=== PATIENT | male | born 1940 | race Caucasian/White ===

== ENCOUNTER 2017-12-27 11:53 | Inpatient (IN) ==
[2017-12-27 12:25] LABS: ABG Base Excess 5.7 mmol/L (-2-2); ABG PCO2 49 mmHg (38-42); ABG PO2 59 mmHg (61-120)
--- NOTE | 2017-12-27 12:51 | XR ---
EXAM DATE: 12/27/2017 12:47 PM EDT AGE/SEX: 77 years / Male INDICATIONS: Short of breath. CLINICAL DATA: This is the patient's initial encounter. Patient reports that signs and symptoms have been present for 2 days and indicates a pain score of 0/10. MEDICAL/SURGICAL HISTORY: Congestive heart failure. None. COMPARISON: No prior exams available for comparison. FINDINGS: There is mild pulmonary vascular congestion. The some consolidation in the right lung base could be s mall area of pneumonia. No visible pneumothorax. Mediastinum is unremarkable. CONCLUSION: Mild pulmonary vascular congestion. Airspace disease right lung base difficult to rule out a small pn eumonia Electronically signed by: Wily Pritchett MD 12/27/2017 12:49 PM EDT
[2017-12-27 12:55] LABS: Baso # (Auto) 0.1 th/mm3 (0.0-0.2); Baso % (Auto) 0.5 % (0.0-2.0); Eos # (Auto) 0.1 th/mm3 (0.0-0.4); Eos % (Auto) 0.7 % (0.0-4.0); Hematocrit 25.8 % (39.0-51.0); Lymph % (Auto) 45.2 % (9.0-44.0); Mean Corpuscular Hemoglobin 23.9 pg (27.0-34.0); Mean Corpuscular Volume 77.5 fL (80.0-100.0); Mean Platelet Volume 10.4 fL (7.0-11.0); Mono # (Auto) 1.1 th/mm3 (0.0-0.9); Neut % (Auto) 45.6 % (16.0-70.0); Platelet Count 244 th/mm3 (150-450); Red Blood Count 3.33 mil/mm3 (4.50-5.90); Red Cell Distribution Width 17.3 % (11.6-17.2); White Blood Count 13.2 th/mm3 (4.0-11.0)
[2017-12-27 12:57] LABS: Mean Corpuscular HGB Conc 30.8 % (32.0-36.0)
[2017-12-27 13:06] LABS: Activated Partial Thrombo Time 32.5 sec (24.3-30.1); INR 1.5 Ratio; Prothrombin Time 15.1 sec (9.8-11.6)
[2017-12-27 13:13] LABS: Albumin 2.4 g/dL (3.4-5.0); Anion Gap 11 meq/L (5-15); Aspartate Aminotransferase 13 U/L (15-37); Blood Urea Nitrogen 30 mg/dL (7-18); Calcium 8.7 mg/dL (8.5-10.1); Carbon Dioxide 30.2 meq/L (21.0-32.0); Chloride 99 meq/L (98-107); Glomerular Filtration Rate 38 mL/min (>89); Glucose,Random 217 mg/dL (74-106); Potassium 3.4 meq/L (3.5-5.1); Sodium 140 meq/L (136-145)
[2017-12-27 13:14] LABS: Alanine Aminotransferase 12 U/L (12-78)
[2017-12-27 13:18] LABS: Alkaline Phosphatase 76 U/L (45-117); Total Protein 8.7 g/dL (6.4-8.2); Troponin I 0.08 ng/mL (0.02-0.05)
[2017-12-27 13:23] LABS: Creatine Kinase 84 U/L (39-308)
[2017-12-27 13:28] LABS: Eosinophils 1 % (0-4); Lymphocytes 38 % (9-44); Monocytes 6 % (0-8)
[2017-12-27 13:30] LABS: Platelet Estimate Normal (Normal); Platelet Morphology Normal (Normal)
[2017-12-27] MEDS ORDERED: Azithromycin Inj 500 MG in Sodium Chlor 0.9% Inj 250 ML IV.SIG ONE (14:24)
--- NOTE | 2017-12-27 15:58 | ED ---
HPI General Chief Complaint: Respiratory Symptoms Stated Complaint: Medical Time Seen by Provider: 12/27/17 12:03 Source: patient and EMS Mode of arrival: EMS Limitations: physical limitation History of Present Illness HPI Narrative: The patient is a morbidly obese male CHF that was brought in by EMS with significant exacerbation alert and oriented however was combative with EMS did not let them put a oxygen mask normal given a breathing treatment. On arrival explained to the patient that he appears critically ill and he needs to comply and he understood. Has been having increased dyspnea for the past couple of days denies any fever or chills. Tachypneic using accessory muscles with a pulse of 123 on arrival. MD Complaint: cough Onset (ago): day(s) (2) Duration: constant Severity: severe Relieving factors: nothing Exacerbating factors: exertion and speaking Description of mucous: clear Able to tolerate fluids by mouth: Yes Associated symptoms: chills and cough Treatments prior to arrival: none Related Data Home Medications Medication Instructions Recorded Confirmed bumetanide 1 mg PO BID 12/27/17 12/27/17 febuxostat [Uloric] 40 mg PO DAILY 12/27/17 12/27/17 insulin aspart U-100 [Novolog 36 unit SUB-Q TIDAC 12/27/17 12/27/17 Flexpen U-100 Insulin] insulin degludec [Tresiba 76 unit SUB-Q BID 12/27/17 12/27/17 FlexTouch U-100] linaclotide [Linzess] 290 mcg PO DAILY 12/27/17 12/27/17 metolazone 5 mg PO QAM 12/27/17 12/27/17 potassium chloride [Klor-Con 10] 20 meq PO BID 12/27/17 12/27/17 pregabalin [Lyrica] 300 mg PO BID 12/27/17 12/27/17 rivaroxaban [Xarelto] 20 mg PO DAILY 12/27/17 12/27/17 simvastatin 10 mg PO QPM 12/27/17 12/27/17 terazosin 10 mg PO HS 12/27/17 12/27/17 Allergies Allergy/AdvReac Type Severity Reaction Status Date / Time No Known Allergies Allergy Unverified 12/27/17 11:57 Review of Systems ROS: all other systems reviewed are negative PMFSH History History Provided By: Patient Medical History Medical History Afib (Acute) CHF (congestive heart failure) (Acute) COPD (chronic obstructive pulmonary disease) (Acute) HTN (hypertension) (Acute) Type II diabetes mellitus (Acute) Social History Social History Substance History: No History of Abuse Smoking Status: Former smoker How Often Do You Have a Drink Containing Alcohol: Monthly or less Recent Travel in [facility] within the Last 8 Weeks: No Recent Out of Country Travel within the Last 8 Weeks: No Exam Narrative Exam Narrative: GENERAL: Alert and oriented in respiratory distress following commands responding to questions. SKIN: Focused skin assessment warm/dry. HEAD: Atraumatic. Normocephalic. EYES: Pupils equal and round. No scleral icterus. No injection or drainage. ENT: No nasal bleeding or discharge. Mucous membranes pink and moist. NECK: Trachea midline. No JVD. CARDIOVASCULAR: Tachycardia. No murmur appreciated. Bilateral pitting edema lower extremity RESPIRATORY: Use of accessory muscles. Respiratory distress. Hypoxemia. Tachypnea. Crackles throughout. GASTROINTESTINAL: Abdomen soft, non-tender, nondistended. Hepatic and splenic margins not palpable. MUSCULOSKELETAL: No obvious deformities. No clubbing. No cyanosis. NEUROLOGICAL: Awake and alert. No obvious cranial nerve deficits. Motor grossly within normal limits. Normal speech. PSYCHIATRIC: Appropriate mood and affect; insight and judgment normal. Course Hospital Course: He did improve onBiPAP and Lasix. He appears to have an pneumonia on top of his CHF exacerbation for which she received Rocephin and Zithromax. Patient was admitted for further evaluation and treatment. He did improve with DuoNeb' s as well. Leukocytosis of 13.2 with a left shift noted. Elevated BNP as well. Market hypoxemia with an O2 saturation of 85% on ABGs and a PO2 of 59. Initial Documented Vital Signs Temperature 98.0 F 12/27/17 11:58 Pulse Rate 123 H 12/27/17 11:58 Respiratory Rate 33 H 12/27/17 11:58 Blood Pressure 112/61 12/27/17 11:58 Pulse Oximetry 96 12/27/17 11:58 Last Documented Vital Signs Temperature 98.0 F 09/19/18 11:58 Pulse Rate 85 12/27/17 18:41 Respiratory Rate 25 H 12/27/17 18:41 Blood Pressure 112/61 12/27/17 11:58 Pulse Oximetry 98 12/27/17 18:41 Critical Care Time Critical Care Time: Yes Total Critical Care Time: 45 Attestation: Aggregate critical care time was 45 minutes. Time to perform other separately billable procedures was not included in the critical care time. My time did not include minutes spent treating any other patients simultaneously or on activities that did not directly contribute to the patient's treatment. The services I provided to this patient were to treat and/or prevent clinically significant deterioration that could result in: Cardiopulmonary collapse and/or I provided critical care services requiring my management, as noted below: Chart data review, documentation time, medication orders and management, vital sign assessments/reviewing monitor data, ordering and reviewing lab tests, ordering and interpreting/reviewing x-rays and diagnostic studies, care of the patient and discussion of the patient with the admitting physicians. Medical Decision Making MDM Narrative Medical decision making narrative: Patient with pneumonia and CHF exacerbation. Creatinine also elevated at 1.73 above baseline hyperglycemia noted. He does have a troponin of 0.08 but he denied any chest pain. Hypoxemia noted. He improved with breathing treatment and BiPAP and was admitted for further evaluation. Toxic no signs of acute ischemia. Medical Screen Exam Complete: Yes Emergency Medical Condition: Yes Medical Records Medical records reviewed: Yes I reviewed the patient's medical records. Lab Data Lab results reviewed: Yes I reviewed the patient's lab results. Result diagrams: 12/27/17 12:30 12/27/17 12:30 Lab Results 12/27/17 12/27/17 12/27/17 Range/Units 12:14 12:30 12:30 WBC 13.2 H (4.0-11.0) th/mm3 RBC 3.33 L (4.50-5.90) mil/mm3 Hgb 8.0 L (13.0-17.0) gm/dL Hct 25.8 L (39.0-51.0) % MCV 77.5 L (80.0-100.0) fL MCH 23.9 L (27.0-34.0) pg MCHC 30.8 L (32.0-36.0) % RDW 17.3 H (11.6-17.2) % Plt Count 244 (150-450) th/mm3 MPV 10.4 (7.0-11.0) fL Prelim Diff (Auto) Slide review pending Neut % (Auto) 45.6 (16.0-70.0) % Lymph % (Auto) 45.2 H (9.0-44.0) % [place] % (Auto) 8.0 (0.0-8.0) % Eos % (Auto) 0.7 (0.0-4.0) % Baso % (Auto) 0.5 (0.0-2.0) % Neut # (Auto) 6.0 (1.8-7.7) th/mm3 Lymph # (Auto) 6.0 H (1.0-4.8) th/mm3 [place] # (Auto) 1.1 H (0.0-0.9) th/mm3 Eos # (Auto) 0.1 (0.0-0.4) th/mm3 Baso # (Auto) 0.1 (0.0-0.2) th/mm3 WBC Differential Manual diff final Seg Neuts % (Manual) 55 (16-70) % Lymphocytes % (Manual) 38 (9-44) % Monocytes % (Manual) 6 (0-8) % Eosinophils % (Manual) 1 (0-4) % Abs Neuts (Manual) 7.3 (1.8-7.7) th/mm3 Differential Comment . Platelet Estimate Normal (Normal) Platelet Morphology Normal (Normal) PT 15.1 H (9.8-11.6) sec INR 1.5 Ratio APTT 32.5 H (24.3-30.1) sec Puncture Site Right radial Patient Temperature 98.6 O2 Saturation 85 L* (90-100) % ABG pH 7.41 (7.380-7.420) ABG pCO2 49 H (38-42) mmHg ABG pO2 59 L* (61-120) mmHg ABG HCO3 30 H (22-26) mmol/L ABG O2 Content 9.4 L (12.0-20.0) Vol % ABG Base Excess 5.7 H (-2-2) mmol/L ABG Methemoglobin 0.7 (0-2) % Eitan Test + Hemoglobin 7.8 L* (12.0-16.0) G/DL Carboxyhemoglobin 2.2 (0-4) % O2 Delivery Device Bipap Vent Setting [id number] Inspired O2 50 % Critical Value Yes Sodium (136-145) meq/L Potassium (3.5-5.1) meq/L Chloride (98-107) meq/L Carbon Dioxide (21.0-32.0) meq/L Anion Gap (5-15) meq/L BUN (7-18) mg/dL Creatinine (0.60-1.30) mg/dL Estimated GFR (>89) mL/min Random Glucose (74-106) mg/dL Lactic Acid (0.4-2.0) mmol/L Calcium (8.5-10.1) mg/dL Total Bilirubin (0.2-1.0) mg/dL AST (15-37) U/L ALT (12-78) U/L Alkaline Phosphatase (45-117) U/L Total Creatine Kinase (39-308) U/L Troponin I (0.02-0.05) ng/mL B-Natriuretic Peptide (0-100) pg/mL Total Protein (6.4-8.2) g/dL Albumin (3.4-5.0) g/dL Blood Type Blood Type Recheck Antibody Screen 12/27/17 12/27/17 12/27/17 Range/Units 12:30 12:30 14:45 WBC (4.0-11.0) th/mm3 RBC (4.50-5.90) mil/mm3 Hgb (13.0-17.0) gm/dL Hct (39.0-51.0) % MCV (80.0-100.0) fL MCH (27.0-34.0) pg MCHC (32.0-36.0) % RDW (11.6-17.2) % Plt Count (150-450) th/mm3 MPV (7.0-11.0) fL Prelim Diff (Auto) Neut % (Auto) (16.0-70.0) % Lymph % (Auto) (9.0-44.0) % [place] % (Auto) (0.0-8.0) % Eos % (Auto) (0.0-4.0) % Baso % (Auto) (0.0-2.0) % Neut # (Auto) (1.8-7.7) th/mm3 Lymph # (Auto) (1.0-4.8) th/mm3 [place] # (Auto) (0.0-0.9) th/mm3 Eos # (Auto) (0.0-0.4) th/mm3 Baso # (Auto) (0.0-0.2) th/mm3 WBC Differential Seg Neuts % (Manual) (16-70) % Lymphocytes % (Manual) (9-44) % Monocytes % (Manual) (0-8) % Eosinophils % (Manual) (0-4) % Abs Neuts (Manual) (1.8-7.7) th/mm3 Differential Comment Platelet Estimate (Normal) Platelet Morphology (Normal) PT (9.8-11.6) sec INR Ratio APTT (24.3-30.1) sec Puncture Site Patient Temperature O2 Saturation (90-100) % ABG pH (7.380-7.420) ABG pCO2 (38-42) mmHg ABG pO2 (61-120) mmHg ABG HCO3 (22-26) mmol/L ABG O2 Content (12.0-20.0) Vol % ABG Base Excess (-2-2) mmol/L ABG Methemoglobin (0-2) % Eitan Test Hemoglobin (12.0-16.0) G/DL Carboxyhemoglobin (0-4) % O2 Delivery Device Vent Setting Inspired O2 % Critical Value Sodium 140 (136-145) meq/L Potassium 3.4 L (3.5-5.1) meq/L Chloride 99 (98-107) meq/L Carbon Dioxide 30.2 (21.0-32.0) meq/L Anion Gap 11 (5-15) meq/L BUN 30 H (7-18) mg/dL Creatinine 1.73 H (0.60-1.30) mg/dL Estimated GFR 38 L (>89) mL/min Random Glucose 217 H (74-106) mg/dL Lactic Acid 1.3 (0.4-2.0) mmol/L Calcium 8.7 (8.5-10.1) mg/dL Total Bilirubin 0.4 (0.2-1.0) mg/dL AST 13 L (15-37) U/L ALT 12 (12-78) U/L Alkaline Phosphatase 76 (45-117) U/L Total Creatine Kinase 84 (39-308) U/L Troponin I 0.08 H (0.02-0.05) ng/mL B-Natriuretic Peptide 341 H (0-100) pg/mL Total Protein 8.7 H (6.4-8.2) g/dL Albumin 2.4 L (3.4-5.0) g/dL Blood Type Blood Type Recheck Antibody Screen 12/27/17 Range/Units 14:45 WBC (4.0-11.0) th/mm3 RBC (4.50-5.90) mil/mm3 Hgb (13.0-17.0) gm/dL Hct (39.0-51.0) % MCV (80.0-100.0) fL MCH (27.0-34.0) pg MCHC (32.0-36.0) % RDW (11.6-17.2) % Plt Count (150-450) th/mm3 MPV (7.0-11.0) fL Prelim Diff (Auto) Neut % (Auto) (16.0-70.0) % Lymph % (Auto) (9.0-44.0) % [place] % (Auto) (0.0-8.0) % Eos % (Auto) (0.0-4.0) % Baso % (Auto) (0.0-2.0) % Neut # (Auto) (1.8-7.7) th/mm3 Lymph # (Auto) (1.0-4.8) th/mm3 [place] # (Auto) (0.0-0.9) th/mm3 Eos # (Auto) (0.0-0.4) th/mm3 Baso # (Auto) (0.0-0.2) th/mm3 WBC Differential Seg Neuts % (Manual) (16-70) % Lymphocytes % (Manual) (9-44) % Monocytes % (Manual) (0-8) % Eosinophils % (Manual) (0-4) % Abs Neuts (Manual) (1.8-7.7) th/mm3 Differential Comment Platelet Estimate (Normal) Platelet Morphology (Normal) PT (9.8-11.6) sec INR Ratio APTT (24.3-30.1) sec Puncture Site Patient Temperature O2 Saturation (90-100) % ABG pH (7.380-7.420) ABG pCO2 (38-42) mmHg ABG pO2 (61-120) mmHg ABG HCO3 (22-26) mmol/L ABG O2 Content (12.0-20.0) Vol % ABG Base Excess (-2-2) mmol/L ABG Methemoglobin (0-2) % Eitan Test Hemoglobin (12.0-16.0) G/DL Carboxyhemoglobin (0-4) % O2 Delivery Device Vent Setting Inspired O2 % Critical Value Sodium (136-145) meq/L Potassium (3.5-5.1) meq/L Chloride (98-107) meq/L Carbon Dioxide (21.0-32.0) meq/L Anion Gap (5-15) meq/L BUN (7-18) mg/dL Creatinine (0.60-1.30) mg/dL Estimated GFR (>89) mL/min Random Glucose (74-106) mg/dL Lactic Acid (0.4-2.0) mmol/L Calcium (8.5-10.1) mg/dL Total Bilirubin (0.2-1.0) mg/dL AST (15-37) U/L ALT (12-78) U/L Alkaline Phosphatase (45-117) U/L Total Creatine Kinase (39-308) U/L Troponin I (0.02-0.05) ng/mL B-Natriuretic Peptide (0-100) pg/mL Total Protein (6.4-8.2) g/dL Albumin (3.4-5.0) g/dL Blood Type O Positive Blood Type Recheck Required Antibody Screen Negative Imaging Data Radiologist's impression: Chest X-Ray 12/27/17 12:03 CONCLUSION: Mild pulmonary vascular congestion. Airspace disease right lung base difficult to rule out a small pneumonia ECG Data Prior ECG tracings: available for review Interpretation: Sinus tachycardia 131 bpm left bundle branch block no signs of acute ischemia. Discharge Plan Discharge Disposition Patient Disposition: 30 Still Patient Discharge Condition Condition: Serious Discharge Details Diagnosis: Acute exacerbation of CHF (congestive heart failure), Pneumonia Physicians Team ED Provider: Tejas Alvarez Primary Care Provider: Christopher Yoder III Attending Provider: Earlene Morrow Other Providers: Tung Hare Discharge Interventions Interventions: ED Discharge Assessment Last Done: 12/27/17 18:52 Vital Signs Last Done: 12/27/17 12:57 Status ED Status: Left Department Discharge Information Discharge Date/Time: 12/27/17 18:53
[2017-12-27] MEDS ORDERED: Acetaminophen 325 MG Tablet PO PRN (16:03)
[2017-12-27] MEDS ORDERED: Bisacodyl 10 MG Supp RECTAL PRN (16:03)
[2017-12-27] MEDS ORDERED: Enoxaparin Inj 30 MG/0.3 ML Syringe SQ SCH (17:00)
--- NOTE | 2017-12-27 20:48 | P.HP ---
History of Present Illness Service: Hospitalist Primary Care Physician: Christopher Yoder III, MD Chief Complaint: Shortness of breath History of Present Illness: Mr. Rader is a pleasant 77 year old male with a history of CHF, COPD, HTN, DM who presents to the ED on 12/27/2017 due to shortness of breath. His dyspnea started 2-3 weeks ago. However, today he was severely dyspneic which prompted him to seek medical attention. He denies any chest pain, cough, fever, chills. No changes in bowel or bladder habits. On arrival, patient was started on BiPAP which provided much relief of his symptoms. He was also given 60mg IV lasix. PMH: CHF, COPD, possible Afib, HTN PSH: No major surgeries in the past Social history: Denies using tobacco, alcohol or illicit drugs Family history: No family history of heart disease, cancer - Diagnosis (1) Acute exacerbation of CHF (congestive heart failure) (2) Pneumonia Inpatient Certification: I certify that the inpatient services were ordered in accordance with Medicare regulations governing the order. This includes certification that hospital inpatient services are reasonable and necessary and in the case of services not specified as inpatient-only under 42 CFR 419.22(n), that they are appropriately provided as inpatient services in accordance to with the 2-midnight benchmark under 43 CFR 412.3(e) Estimated Total Length of Stay (Days): 3 Plans for Post Hospital Care: Home Review of Systems All other systems reviewed negative except as stated in HPI [facility] - History History Provided By: Patient - Medical History Medical History: Medical History (Last Reviewed 12/27/17 @ 19:15 by Tejas Alvarez DO) Afib CHF (congestive heart failure) COPD (chronic obstructive pulmonary disease) HTN (hypertension) Type II diabetes mellitus - Tobacco History Smoking Status: Former smoker - Alcohol History How Often Do You Have a Drink Containing Alcohol: Monthly or less - Substance Use History Substance History: No History of Abuse - Travel History Recent Travel in the [place] Within the Last 8 Weeks: No Recent Travel Out of the Country Within the Last 8 Weeks: No - Immunization History Tetanus Immunization: Unsure Hx Influenza Vaccine This Season: No Medications and Allergies Active Medications: Active Medications Acetaminophen (Tylenol) 650 mg PO Q4H PRN PRN Reason: Headache, fever, pain 1-4 Al Hydroxide/Mg Hydroxide (Milk Of Magnesia Liq) 30 ml PO Q12H PRN PRN Reason: Mild Constipation Bisacodyl (Dulcolax Supp) 10 mg RECTAL DAILY PRN PRN Reason: SEVERE CONSITIPATION Enoxaparin Sodium (Lovenox Inj) 30 mg SQ Q24H [facility] Last Admin: 12/27/17 17:44 Dose: 30 mg Furosemide (Lasix Inj) 40 mg IV.PUSH BID@0900,1800 [facility] Last Admin: 12/27/17 19:03 Dose: 40 mg Lactulose (Lactulose Liq) 30 ml PO DAILY PRN PRN Reason: SEVERE CONSITIPATION Ondansetron HCl (Zofran Inj) 4 mg IV.PUSH Q6H PRN PRN Reason: NAUSEA OR VOMITING Sennosides (Senokot) 17.2 mg PO Q12H PRN PRN Reason: Moderate Constipation Allergies Allergy/AdvReac Type Severity Reaction Status Date / Time No Known Allergies Allergy Unverified 12/27/17 11:57 Home Medications Medication Instructions Recorded Confirmed Type bumetanide 1 mg PO BID 12/27/17 12/27/17 History febuxostat [Uloric] 40 mg PO DAILY 12/27/17 12/27/17 History insulin aspart U-100 [Novolog 36 unit SUB-Q TIDAC 12/27/17 12/27/17 History Flexpen U-100 Insulin] insulin degludec [Tresiba 76 unit SUB-Q BID 12/27/17 12/27/17 History FlexTouch U-100] linaclotide [Linzess] 290 mcg PO DAILY 12/27/17 12/27/17 History metolazone 5 mg PO QAM 12/27/17 12/27/17 History potassium chloride [Klor-Con 10] 20 meq PO BID 12/27/17 12/27/17 History pregabalin [Lyrica] 300 mg PO BID 12/27/17 12/27/17 History rivaroxaban [Xarelto] 20 mg PO DAILY 12/27/17 12/27/17 History simvastatin 10 mg PO QPM 12/27/17 12/27/17 History terazosin 10 mg PO HS 12/27/17 12/27/17 History Exam Vital signs: Vital Signs 12/27/17 11:58 12/27/17 12:00 12/27/17 12:08 Temperature 98.0 F Pulse Rate 123 H Respiratory Rate 33 H Blood Pressure 112/61 Pulse Oximetry 96 99 97 12/27/17 12:09 12/27/17 12:29 12/27/17 12:57 Temperature Pulse Rate 106 H 111 H 103 H Respiratory Rate 28 H 26 H Blood Pressure Pulse Oximetry 97 96 12/27/17 18:34 12/27/17 18:41 12/27/17 19:00 Temperature 97.2 F L Pulse Rate 83 77 Respiratory Rate 25 H 24 Blood Pressure 101/56 L Pulse Oximetry 98 98 96 Intake & Output 12/27/17 12/27/17 12/28/17 06:59 18:59 06:59 Intake Total 450 / 450 Balance 450 / 450 Weight 158.757 kg Intake: IV 450 / 450 Azithromycin Inj 500 MG In NS 250 / 250 Inj 250 ML @ 250 mls/hr IV.SIG ONCE ONE Rx#:[id number] Rocephin Inj 1,000 MG In NS Inj 200 / 200 100 ML @ 200 mls/hr IV.SIG ONCE ONE Rx#:[id number] Narrative: GENERAL: This is a well-nourished, well-developed patient, in no apparent distress. Comfortable on BiPAP mask. Morbidly obese. SKIN: No rashes, ecchymoses or lesions. Warm and dry. HEAD: Atraumatic. Normocephalic. No temporal or scalp tenderness. EYES: Pupils equal round and reactive. No injection or drainage. ENT: Nose without bleeding, purulent drainage or septal hematoma. Airway patent. NECK: Trachea midline. No lymphadenopathy. Supple, nontender, no meningeal signs. CARDIOVASCULAR: Regular rate and rhythm without murmurs, gallops, or rubs. No JVD. RESPIRATORY: Clear to auscultation. Breath sounds equal bilaterally. No wheezes , rales, or rhonchi. GASTROINTESTINAL: Abdomen soft, non-tender, nondistended. No guarding. MUSCULOSKELETAL: Extremities without clubbing. Extensive stasis dermatitis, lymphedema in both legs. NEUROLOGICAL: Awake and alert. Cranial nerves II through XII intact. No focal neurological deficits. Normal speech. Results - Labs CBC & Chem 7: 12/27/17 12:30 12/27/17 12:30 Labs: Laboratory Results - last 24 hr 12/27/17 12/27/17 12/27/17 12:14 12:30 12:30 WBC 13.2 H RBC 3.33 L Hgb 8.0 L Hct 25.8 L MCV 77.5 L MCH 23.9 L MCHC 30.8 L RDW 17.3 H Plt Count 244 MPV 10.4 Prelim Diff (Auto) Slide review pending Neut % (Auto) 45.6 Lymph % (Auto) 45.2 H Bee % (Auto) 8.0 Eos % (Auto) 0.7 Baso % (Auto) 0.5 Neut # (Auto) 6.0 Lymph # (Auto) 6.0 H Bee # (Auto) 1.1 H Eos # (Auto) 0.1 Baso # (Auto) 0.1 WBC Differential Manual diff final Seg Neuts % (Manual) 55 Lymphocytes % (Manual) 38 Monocytes % (Manual) 6 Eosinophils % (Manual) 1 Abs Neuts (Manual) 7.3 Differential Comment . Platelet Estimate Normal Platelet Morphology Normal PT 15.1 H INR 1.5 APTT 32.5 H Puncture Site Right radial Patient Temperature 98.6 O2 Saturation 85 L* ABG pH 7.41 ABG pCO2 49 H ABG pO2 59 L* ABG HCO3 30 H ABG O2 Content 9.4 L ABG Base Excess 5.7 H ABG Methemoglobin 0.7 Eitan Test + Hemoglobin 7.8 L* Carboxyhemoglobin 2.2 O2 Delivery Device Bipap Vent Setting [id number] Inspired O2 50 Critical Value Yes Sodium Potassium Chloride Carbon Dioxide Anion Gap BUN Creatinine Estimated GFR POC Glucose Random Glucose Lactic Acid Calcium Total Bilirubin AST ALT Alkaline Phosphatase Total Creatine Kinase Troponin I B-Natriuretic Peptide Total Protein Albumin Blood Type Blood Type Recheck Antibody Screen 12/27/17 12/27/17 12/27/17 12:30 12:30 14:45 WBC RBC Hgb Hct MCV MCH MCHC RDW Plt Count MPV Prelim Diff (Auto) Neut % (Auto) Lymph % (Auto) Bee % (Auto) Eos % (Auto) Baso % (Auto) Neut # (Auto) Lymph # (Auto) Bee # (Auto) Eos # (Auto) Baso # (Auto) WBC Differential Seg Neuts % (Manual) Lymphocytes % (Manual) Monocytes % (Manual) Eosinophils % (Manual) Abs Neuts (Manual) Differential Comment Platelet Estimate Platelet Morphology PT INR APTT Puncture Site Patient Temperature O2 Saturation ABG pH ABG pCO2 ABG pO2 ABG HCO3 ABG O2 Content ABG Base Excess ABG Methemoglobin Eitan Test Hemoglobin Carboxyhemoglobin O2 Delivery Device Vent Setting Inspired O2 Critical Value Sodium 140 Potassium 3.4 L Chloride 99 Carbon Dioxide 30.2 Anion Gap 11 BUN 30 H Creatinine 1.73 H Estimated GFR 38 L POC Glucose Random Glucose 217 H Lactic Acid 1.3 Calcium 8.7 Total Bilirubin 0.4 AST 13 L ALT 12 Alkaline Phosphatase 76 Total Creatine Kinase 84 Troponin I 0.08 H B-Natriuretic Peptide 341 H Total Protein 8.7 H Albumin 2.4 L Blood Type Blood Type Recheck Antibody Screen 12/27/17 12/27/17 14:45 19:30 WBC RBC Hgb Hct MCV MCH MCHC RDW Plt Count MPV Prelim Diff (Auto) Neut % (Auto) Lymph % (Auto) Bee % (Auto) Eos % (Auto) Baso % (Auto) Neut # (Auto) Lymph # (Auto) Bee # (Auto) Eos # (Auto) Baso # (Auto) WBC Differential Seg Neuts % (Manual) Lymphocytes % (Manual) Monocytes % (Manual) Eosinophils % (Manual) Abs Neuts (Manual) Differential Comment Platelet Estimate Platelet Morphology PT INR APTT Puncture Site Patient Temperature O2 Saturation ABG pH ABG pCO2 ABG pO2 ABG HCO3 ABG O2 Content ABG Base Excess ABG Methemoglobin Eitan Test Hemoglobin Carboxyhemoglobin O2 Delivery Device Vent Setting Inspired O2 Critical Value Sodium Potassium Chloride Carbon Dioxide Anion Gap BUN Creatinine Estimated GFR POC Glucose 164 H Random Glucose Lactic Acid Calcium Total Bilirubin AST ALT Alkaline Phosphatase Total Creatine Kinase Troponin I B-Natriuretic Peptide Total Protein Albumin Blood Type O Positive Blood Type Recheck Required Antibody Screen Negative - Imaging Impressions Chest X-Ray 12/27/17 12:03 CONCLUSION: Mild pulmonary vascular congestion. Airspace disease right lung base difficult to rule out a small pneumonia Caprini VTE Risk Assessment Caprini VTE Risk Assessment: Moderate/High Risk (score >= 2) Caprini Risk Assessment Model: Point Value = 1 Point Value = 2 Point Value = 3 Point Value = 5 Age 41-60 Minor surgery BMI > 25 kg/m2 Swollen legs Varicose veins or History of unexplained or recurrent spontaneous Oral contraceptives or hormone replacement Sepsis (< 1 month) Serious lung disease, including pneumonia (< 1 month) Abnormal pulmonary function Acute myocardial infarction Congestive heart failure (< 1 month) History of inflammatory bowel disease Medical patient at bed rest Age 61-74 Arthroscopic surgery Major open surgery (> 45 min) Laparoscopic surgery (> 45 min) Malignancy Confined to bed (> 72 hours) Immobilizing plaster cast Central venous access Age >= 75 History of VTE Family history of VTE Factor V Leiden Prothrombin [id number] Lupus anticoagulant Anticardiolipin antibodies Elevated serum homocysteine Heparin-induced thrombocytopenia Other congenital or acquired thrombophilia Stroke (< 1 month) Elective arthroplasty Hip, pelvis, or leg fracture Acute spinal cord injury (< 1 month) Prophylaxis Regimen: Total Risk Factor Score Risk Level Prophylaxis Regimen 0-1 Low Early ambulation 2 Moderate Order ONE of the following: *Sequential Compression Device (SCD) *Heparin 5000 units SQ BID 3-4 Higher Order ONE of the following medications: *Heparin 5000 units SQ TID *Enoxaparin/Lovenox 40 mg SQ daily (WT < 150 kg, CrCl > 30 mL/min) *Enoxaparin/Lovenox 30 mg SQ daily (WT < 150 kg, CrCl > 10-29 mL/min) *Enoxaparin/Lovenox 30 mg SQ BID (WT < 150 kg, CrCl > 30 mL/min) AND/OR *Sequential Compression Device (SCD) 5 or more Highest Order ONE of the following medications: *Heparin 5000 units SQ TID (Preferred with Epidurals) *Enoxaparin/Lovenox 40 mg SQ daily (WT < 150 kg, CrCl > 30 mL/min) *Enoxaparin/Lovenox 30 mg SQ daily (WT < 150 kg, CrCl > 10-29 mL/min) *Enoxaparin/Lovenox 30 mg SQ BID (WT < 150 kg, CrCl > 30 mL/min) AND *Sequential Compression Device (SCD) Assessment and Plan - Assessment (1) Acute exacerbation of CHF (congestive heart failure) Code(s): I50.9 - Heart failure, unspecified Status: Acute (2) Pneumonia Code(s): J18.9 - Pneumonia, unspecified organism Status: Acute - Plan Mr. Rader is a pleasant 77 year old male with a history of morbid obesity, CHF, HTN who presents to the ED due to worsening dyspnea that started about 3 weeks ago. Acute exacerbation of CHF - possibly systolic. - Will obtain a consult with patient's putty patcher Dr. Hare - Lasix 40mg IV BID - 2D echo - no echo found in the hospital EMR - Hold off Beta jim or CCB due to acute CHF. Probable pneumonia - CXR inconclusive. However, patient's WBC is elevated. - Will treat with Levaquin 750mg Q48hrs X 3 doses. Possible Afib - Patient takes Xarelto. Likely from Afib. Diabetes mellitus - Will start patient on Levemir 10 units BID, sliding scale insulin. - May need meal coverage as well. Morbid obesity Bilateral lower ext lymphedema Severe stasis dermatitis - Will consult wound care for recommendations. Full code. Xarelto. (1) Acute exacerbation of CHF (congestive heart failure) Qualifiers: Heart failure type: unspecified Qualified Code(s): I50.9 - Heart failure, unspecified (2) Pneumonia Qualifiers: Pneumonia type: due to unspecified organism Laterality: right Lung location : lower lobe of lung Qualified Code(s): J18.1 - Lobar pneumonia, unspecified organism
[2017-12-27] MEDS ORDERED: Dextrose 50% in Water 50 ML Vial IV.PUSH PRN (20:55)
[2017-12-27] MEDS: Insulin NovoLOG Aspart Correctional Sugar Inj SQ SCH (21:19)
[2017-12-27] MEDS: levoFLOXacin 750 MG Tablet PO SCH (22:37)
[2017-12-28] MEDS: Insulin NovoLOG Aspart Correctional Sugar Inj SQ SCH ×5 (03:39→21:00)
[2017-12-28] MEDS: Rivaroxaban 20 MG Tablet PO SCH (08:28)
[2017-12-28] MEDS: Insulin Detemir Inj 1,000 UNIT/10 ML Vial SQ SCH ×2 (08:28→21:07)
[2017-12-28] MEDS ORDERED: Pregabalin 300 MG Capsule PO SCH (09:00)
--- NOTE | 2017-12-28 09:56 | MB ---
cc: Adolfo Jefferson MD DATE: 12/28/2017 REASON FOR CONSULTATION: Evaluation of CHF. HISTORY OF PRESENT ILLNESS: Conor Hicks is 77-year-old male followed by my colleague, Dr. Hare. The patient has a history of morbid obesity and chronic atrial fibrillation and comes in now short of breath and has been diagnosed in part with CHF. The patient has chronic atrial fibrillation with a controlled rate and is on Xarelto for anticoagulation. He is extremely morbidly obese. Started getting short of breath starting about a week ago, and it became severe the day before coming into the hospital. Since admission, he has been getting IV diuretics and he is on a BiPAP mask, and shortness of breath he says it is improving. Denies any chest pain. He quit smoking when he was 37 years of age. He lives alone and eats a lot of TV dinners and admits his diet probably contains a large amount of salt. PAST MEDICAL HISTORY: Includes chronic atrial fibrillation, chronic diastolic CHF, benign prostatic hypertrophy, previous cellulitis of the right leg, lymphedema, type 2 diabetes, peripheral neuropathy. PAST SURGICAL HISTORY: Includes appendectomy, cataract removal, and rhinoplasty. MEDICATIONS: Bumex twice a day, takes metolazone Wednesdays and Saturdays. He is on Xarelto. ALLERGIES: NONE KNOWN. FAMILY HISTORY: Positive for a history of TB in the father. SOCIAL HISTORY: He smoked, but stopped at age 37. He has 1 beer occasionally. He is and lives alone. REVIEW OF SYSTEMS: Denies any bleeding. Cannot really tell if it there has been an increase in edema or not. He has had no chest pain. Remaining review of systems negative. PHYSICAL EXAMINATION: GENERAL: Extreme morbid obesity, wearing a BiPAP mask. Does not appear to be acutely distressed. He was tachycardic admission, but normal heart rate now. HEENT: Unremarkable. NECK: Veins are difficult to see because of the obesity. There are no bruits. CHEST: Shows diminished breath sounds, particularly at the bases. CARDIAC: S1, S2, irregular rate and rhythm. I do not hear an S3. Cannot hear a murmur. ABDOMEN: Severely obese. EXTREMITIES: Reveal extensive stasis dermatitis and lymphedema. LABORATORY DATA: Charted. Creatinine is 1.73. He is anemic with a hematocrit of 25.8, troponin is 0.08. BNP is elevated at 341. 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 We will defer to the primary team for management of that. RECOMMENDATIONS: Agree with diuresis. It would be ideal if we could get his diet switched, but that poses challenges since he lives alone and does not cook and eats a lot of TV dinner-type food. Seems to be improving with diuresis. Further therapy to be determined. MD CHAI Butts/tonio , 09:16 AM , 09:24 AM
--- NOTE | 2017-12-28 10:26 | P.PN ---
Subjective Interval history: Follow up for CHF exacerbation. Patient is resting in bed, on BiPAP. No fever, chills. Tolerating BiPAP mask well. Physical Exam Vital signs: Vital Signs 12/27/17 11:58 12/27/17 12:00 12/27/17 12:08 Temperature 98.0 F Pulse Rate 123 H Respiratory Rate 33 H Blood Pressure 112/61 Pulse Oximetry 96 99 97 12/27/17 12:09 12/27/17 12:29 12/27/17 12:57 Temperature Pulse Rate 106 H 111 H 103 H Respiratory Rate 28 H 26 H Blood Pressure Pulse Oximetry 97 96 12/27/17 18:34 12/27/17 18:41 12/27/17 19:00 Temperature 97.2 F L Pulse Rate 83 77 Respiratory Rate 25 H 24 Blood Pressure 101/56 L Pulse Oximetry 98 98 96 12/27/17 20:00 12/27/17 23:00 12/28/17 01:14 Temperature 97.8 F Pulse Rate 104 H 88 Respiratory Rate 24 Blood Pressure 107/64 Pulse Oximetry 96 98 98 12/28/17 03:00 12/28/17 04:30 12/28/17 08:33 Temperature 98.5 F Pulse Rate 87 Respiratory Rate 24 Blood Pressure 99/60 L Pulse Oximetry 100 98 100 Intake & Output 12/27/17 12/28/17 12/28/17 18:59 06:59 18:59 Intake Total 450 / 450 240 / 240 Output Total 1050 / 1050 Balance 450 / 450 -810 / -810 Weight 158.757 kg 157.6 kg Intake: IV 450 / 450 Azithromycin Inj 500 MG In NS 250 / 250 Inj 250 ML @ 250 mls/hr IV.SIG ONCE ONE Rx#:[id number] Rocephin Inj 1,000 MG In NS Inj 200 / 200 100 ML @ 200 mls/hr IV.SIG ONCE ONE Rx#:[id number] Oral 240 / 240 Output: Urine 1050 / 1050 Narrative: GENERAL: AOx3, NAD. Morbidly obese. SKIN: Warm and dry. HEAD: Normocephalic. EYES: No scleral icterus. No injection or drainage. NECK: Supple, trachea midline. No JVD or lymphadenopathy. CARDIOVASCULAR: Regular rate and rhythm without murmurs, gallops, or rubs. RESPIRATORY: Breath sounds equal bilaterally. No accessory muscle use. GASTROINTESTINAL: Abdomen soft, non-tender, nondistended. MUSCULOSKELETAL: No cyanosis. Extensive stasis dermatitis, lymphedema in both legs. BACK: Nontender without obvious deformity. No CVA tenderness. Results - Labs CBC & Chem 7: 12/27/17 12:30 12/27/17 12:30 Laboratory Results - last 24 hr 12/27/17 12/27/17 12/27/17 12:14 12:30 12:30 WBC 13.2 H RBC 3.33 L Hgb 8.0 L Hct 25.8 L MCV 77.5 L MCH 23.9 L MCHC 30.8 L RDW 17.3 H Plt Count 244 MPV 10.4 Prelim Diff (Auto) Slide review pending Neut % (Auto) 45.6 Lymph % (Auto) 45.2 H Dillon % (Auto) 8.0 Eos % (Auto) 0.7 Baso % (Auto) 0.5 Neut # (Auto) 6.0 Lymph # (Auto) 6.0 H Dillon # (Auto) 1.1 H Eos # (Auto) 0.1 Baso # (Auto) 0.1 WBC Differential Manual diff final Seg Neuts % (Manual) 55 Lymphocytes % (Manual) 38 Monocytes % (Manual) 6 Eosinophils % (Manual) 1 Abs Neuts (Manual) 7.3 Differential Comment . Platelet Estimate Normal Platelet Morphology Normal PT 15.1 H INR 1.5 APTT 32.5 H Puncture Site Right radial Patient Temperature 98.6 O2 Saturation 85 L* ABG pH 7.41 ABG pCO2 49 H ABG pO2 59 L* ABG HCO3 30 H ABG O2 Content 9.4 L ABG Base Excess 5.7 H ABG Methemoglobin 0.7 Eitan Test + Hemoglobin 7.8 L* Carboxyhemoglobin 2.2 O2 Delivery Device Bipap Vent Setting Ipap15/epap5 Inspired O2 50 Critical Value Yes Sodium Potassium Chloride Carbon Dioxide Anion Gap BUN Creatinine Estimated GFR POC Glucose Random Glucose Lactic Acid Calcium Total Bilirubin AST ALT Alkaline Phosphatase Total Creatine Kinase Troponin I B-Natriuretic Peptide Total Protein Albumin Blood Type Blood Type Recheck Antibody Screen 12/27/17 12/27/17 12/27/17 12:30 12:30 14:45 WBC RBC Hgb Hct MCV MCH MCHC RDW Plt Count MPV Prelim Diff (Auto) Neut % (Auto) Lymph % (Auto) Dillon % (Auto) Eos % (Auto) Baso % (Auto) Neut # (Auto) Lymph # (Auto) Dillon # (Auto) Eos # (Auto) Baso # (Auto) WBC Differential Seg Neuts % (Manual) Lymphocytes % (Manual) Monocytes % (Manual) Eosinophils % (Manual) Abs Neuts (Manual) Differential Comment Platelet Estimate Platelet Morphology PT INR APTT Puncture Site Patient Temperature O2 Saturation ABG pH ABG pCO2 ABG pO2 ABG HCO3 ABG O2 Content ABG Base Excess ABG Methemoglobin Eitan Test Hemoglobin Carboxyhemoglobin O2 Delivery Device Vent Setting Inspired O2 Critical Value Sodium 140 Potassium 3.4 L Chloride 99 Carbon Dioxide 30.2 Anion Gap 11 BUN 30 H Creatinine 1.73 H Estimated GFR 38 L POC Glucose Random Glucose 217 H Lactic Acid 1.3 Calcium 8.7 Total Bilirubin 0.4 AST 13 L ALT 12 Alkaline Phosphatase 76 Total Creatine Kinase 84 Troponin I 0.08 H B-Natriuretic Peptide 341 H Total Protein 8.7 H Albumin 2.4 L Blood Type Blood Type Recheck Antibody Screen 12/27/17 12/27/17 12/28/17 14:45 19:30 03:11 WBC RBC Hgb Hct MCV MCH MCHC RDW Plt Count MPV Prelim Diff (Auto) Neut % (Auto) Lymph % (Auto) Dillon % (Auto) Eos % (Auto) Baso % (Auto) Neut # (Auto) Lymph # (Auto) Dillon # (Auto) Eos # (Auto) Baso # (Auto) WBC Differential Seg Neuts % (Manual) Lymphocytes % (Manual) Monocytes % (Manual) Eosinophils % (Manual) Abs Neuts (Manual) Differential Comment Platelet Estimate Platelet Morphology PT INR APTT Puncture Site Patient Temperature O2 Saturation ABG pH ABG pCO2 ABG pO2 ABG HCO3 ABG O2 Content ABG Base Excess ABG Methemoglobin Eitan Test Hemoglobin Carboxyhemoglobin O2 Delivery Device Vent Setting Inspired O2 Critical Value Sodium Potassium Chloride Carbon Dioxide Anion Gap BUN Creatinine Estimated GFR POC Glucose 164 H 116 H Random Glucose Lactic Acid Calcium Total Bilirubin AST ALT Alkaline Phosphatase Total Creatine Kinase Troponin I B-Natriuretic Peptide Total Protein Albumin Blood Type O Positive Blood Type Recheck Required Antibody Screen Negative 12/28/17 07:25 WBC RBC Hgb Hct MCV MCH MCHC RDW Plt Count MPV Prelim Diff (Auto) Neut % (Auto) Lymph % (Auto) Dillon % (Auto) Eos % (Auto) Baso % (Auto) Neut # (Auto) Lymph # (Auto) Dillon # (Auto) Eos # (Auto) Baso # (Auto) WBC Differential Seg Neuts % (Manual) Lymphocytes % (Manual) Monocytes % (Manual) Eosinophils % (Manual) Abs Neuts (Manual) Differential Comment Platelet Estimate Platelet Morphology PT INR APTT Puncture Site Patient Temperature O2 Saturation ABG pH ABG pCO2 ABG pO2 ABG HCO3 ABG O2 Content ABG Base Excess ABG Methemoglobin Eitan Test Hemoglobin Carboxyhemoglobin O2 Delivery Device Vent Setting Inspired O2 Critical Value Sodium Potassium Chloride Carbon Dioxide Anion Gap BUN Creatinine Estimated GFR POC Glucose 90 Random Glucose Lactic Acid Calcium Total Bilirubin AST ALT Alkaline Phosphatase Total Creatine Kinase Troponin I B-Natriuretic Peptide Total Protein Albumin Blood Type Blood Type Recheck Antibody Screen Microbiology 12/28/17 00:30 Nasal Wash Influenza Types A,B Antigen - Final Negative for FLU A and B antigen Infection due to influenza A or B cannot be ruled out since the antigen present in the sample may be below the detection limit of the test. - Imaging Impressions Chest X-Ray 12/27/17 12:03 CONCLUSION: Mild pulmonary vascular congestion. Airspace disease right lung base difficult to rule out a small pneumonia Assessment and Plan - Assessment (1) Acute exacerbation of CHF (congestive heart failure) Code(s): I50.9 - Heart failure, unspecified Status: Acute (2) Pneumonia Code(s): J18.9 - Pneumonia, unspecified organism Status: Acute - Plan Mr. Rader is a pleasant 77 year old male with a history of morbid obesity, CHF, HTN who presents to the ED due to worsening dyspnea that started about 3 weeks ago. Acute respiratory failure hypoxia Acute exacerbation of CHF - systolic. Pulmonary hypertension with pulm artery pressure 59 mmHg. - Cardiology evaluated patient, recommended to continue Lasix. - Lasix 40mg IV BID - 2D echo shows EF 40%. - Hold off Beta jim or CCB due to acute CHF. - Clonazepam due to anxiety. - Will consult pulmonary. May need an outpatient sleep study. Probable pneumonia - CXR inconclusive. However, patient's WBC is elevated. - Will treat with Levaquin 750mg Q48hrs X 3 doses. Possible Afib - Patient takes Xarelto. Likely from Afib. Diabetes mellitus - Levemir 10 units BID, sliding scale insulin. - May need meal coverage as well. Morbid obesity Bilateral lower ext lymphedema Severe stasis dermatitis - Appreciate wound care for recommendations. Full code. Xarelto. (1) Acute exacerbation of CHF (congestive heart failure) Qualifiers: Heart failure type: unspecified Qualified Code(s): I50.9 - Heart failure, unspecified (2) Pneumonia Qualifiers: Pneumonia type: due to unspecified organism Laterality: right Lung location : lower lobe of lung Qualified Code(s): J18.1 - Lobar pneumonia, unspecified organism
--- NOTE | 2017-12-28 11:28 | ECHRPT ---
Indication: Heart Failure CONCLUSIONS Mildly dilated left ventricle. Mild concentric left ventricular hypertrophy. The left ventricular systolic function is moderately reduced with an estimated ejection fraction of 40%. Distal anteroapical and apical hypokinesis. Mild mitral valve regurgitation. Aortic valve sclerosis is present. There is trace tricuspid valve regurgitation. The estimated pulmonary arterial pressure is 59 mmHg. The inferior vena cava is dilated. There is less than 50% respiratory change in dimension of the inferior vena cava (abnormal). BP: / HR: Rhythm: MEASUREMENTS (Male / Female) Normal Values Technical Quality:Fair 2D ECHO LV Diastolic Diameter PLAX 6.2 cm 4.2 - 5.9 / 3.9 - 5.3 cm LV Systolic Diameter PLAX 4.6 cm IVS Diastolic Thickness 1.2 cm 0.6 - 1.0 / 0.6 - 0.9 cm LVPW Diastolic Thickness 1.2 cm 0.6 - 1.0 / 0.6 - 0.9 cm LV Relative Wall Thickness 0.4 RV Internal Dim ED PLAX 3.1 cm LVOT Diameter 2.2 cm Aortic Root Diameter 3.1 cm LA Systolic Diameter LX 3.9 cm 3.0 - 4.0 / 2.7 - 3.8 cm M-MODE AV Cusp Separation MM 2.2 cm DOPPLER AV Peak Velocity 113.0 cm/s AV Peak Gradient 5.1 mmHg LVOT Peak Velocity 110.0 cm/s LVOT Peak Gradient 4.8 mmHg AV Area Cont Eq pk 3.7 cm Mitral E Point Velocity 100.0 cm/s Mitral A Point Velocity 74.5 cm/s Mitral E to A Ratio 1.3 LV E' Lateral Velocity 10.6 cm/s Mitral E to LV E' Lateral Ratio 9.4 LV E' Septal Velocity 7.1 cm/s Mitral E to LV E' Septal Ratio 14.0 TR Peak Velocity 332.0 cm/s TR Peak Gradient 44.1 mmHg Right Atrial Pressure 15.0 mmHg Pulmonary Artery Systolic Pressu 59.1 mmHg Right Ventricular Systolic Press 59.1 mmHg PV Peak Velocity 128.0 cm/s PV Peak Gradient 6.6 mmHg FINDINGS LEFT VENTRICLE Mildly dilated left ventricle. Mild concentric left ventricular hypertrophy. The left ventricular systolic function is moderately reduced with an estimated ejection fraction of 40%. Distal anteroapical and apical hypokinesis. RIGHT VENTRICLE Normal right ventricular size and systolic function. LEFT ATRIUM The left atrial size is normal. RIGHT ATRIUM The right atrial size is normal. ATRIAL SEPTUM Normal atrial septal thickness without atrial level shunting by limited color doppler interrogation. AORTA The aortic root and proximal ascending aorta are normal in size on limited imaging. MITRAL VALVE Mild mitral valve regurgitation. AORTIC VALVE Trileaflet aortic valve. Aortic valve sclerosis is present. TRICUSPID VALVE There is trace tricuspid valve regurgitation. The estimated pulmonary arterial pressure is 59 mmHg. PULMONARY VALVE No pulmonary valve regurgitation or stenosis. VESSELS The inferior vena cava is dilated. There is less than 50% respiratory change in dimension of the inferior vena cava (abnormal). PERICARDIUM No pericardial effusion. Deangelo Hamilton MD, FACC (Electronically Signed) Final Date:28 December 2017 11:24
[2017-12-28] MEDS: clonazePAM 1 MG Tablet PO SCH ×2 (11:34→17:59)
--- NOTE | 2017-12-28 17:13 | P.PNWCN ---
Wound Care Nurse Consult Description: Consult for Wound Management of Bilateral lower ext stasis dermatitis lymphedema per Dr Morrow Communicated with: QUETA Deleon made aware of recommendations for shaving cream therapy, Lac Hydrin lotion, rolled gauze and BLANCA wrap for comfort/protection Patient Recommendation: Shaving cream therapy today x2 as follows: Apply shaving cream to bilateral lower legs and cover with warm water moistened bath towels for ~10 min Dry thoroughly Repeat. After shaving cream therapy complete, Apply Lac Hydrin (from pharmacy) from just below knees to toes DAILY Cover with rolled gauze and secure further with BLANCA wrap for comfort Additional information: Patient seen on [facility] for wound evaluation of bilateral lower legs. NO OPEN WOUNDS WERE NOTED. Patient states that he wraps his legs at home. Patient is ACUTE CHF, therefore compression wraps are not recommended at this time. However , cleansing the legs along with comfort dressings are recommended and described above.
--- NOTE | 2017-12-28 19:34 | ECG ---
Date Performed: 12/27/2017 Time Performed: 12:01:04 PTAGE: 77 years EKG: ATRIAL FIBRILLATION WITH RAPID VENTRICULAR RESPONSE MARKED LEFT AXIS DEVIATION LEFT BUNDLE BRANCH BLOCK Compared to previous tracing, Left bundle branch block is new ABNORMAL ECG NO PREVIOUS TRACING DOCTOR: Adolfo Jefferson Interpretating Date/Time 12/28/2017 19:34:20
[2017-12-29] MEDS: clonazePAM 1 MG Tablet PO SCH ×3 (02:39→19:07)
[2017-12-29] MEDS: Insulin NovoLOG Aspart Correctional Sugar Inj SQ SCH ×5 (02:40→22:35)
--- NOTE | 2017-12-29 07:34 | P.PNCA ---
Subjective Interval history: Still SOB, only minimally better Medications and Allergies Allergies Allergy/AdvReac Type Severity Reaction Status Date / Time No Known Allergies Allergy Unverified 12/27/17 11:57 Home Medications Medication Instructions Recorded Confirmed Type bumetanide 1 mg PO BID 12/27/17 12/27/17 History febuxostat [Uloric] 40 mg PO DAILY 12/27/17 12/27/17 History insulin aspart U-100 [Novolog 36 unit SUB-Q TIDAC 12/27/17 12/27/17 History Flexpen U-100 Insulin] insulin degludec [Tresiba 76 unit SUB-Q BID 12/27/17 12/27/17 History FlexTouch U-100] linaclotide [Linzess] 290 mcg PO DAILY 12/27/17 12/27/17 History metolazone 5 mg PO QAM 12/27/17 12/27/17 History potassium chloride [Klor-Con 10] 20 meq PO BID 12/27/17 12/27/17 History pregabalin [Lyrica] 300 mg PO BID 12/27/17 12/27/17 History rivaroxaban [Xarelto] 20 mg PO DAILY 12/27/17 12/27/17 History simvastatin 10 mg PO QPM 12/27/17 12/27/17 History terazosin 10 mg PO HS 12/27/17 12/27/17 History Physical Exam Vital signs: Vital Signs 12/28/17 08:00 12/28/17 08:33 12/28/17 11:00 Temperature 98.0 F Pulse Rate 96 H Respiratory Rate 18 Blood Pressure 112/59 L Pulse Oximetry 100 100 97 12/28/17 12:00 12/28/17 12:15 12/28/17 13:00 Temperature Pulse Rate 92 H 89 Respiratory Rate Blood Pressure Pulse Oximetry 97 12/28/17 14:00 12/28/17 15:00 12/28/17 16:00 Temperature 97.7 F Pulse Rate 93 H 93 H 94 H Respiratory Rate 18 Blood Pressure 126/67 Pulse Oximetry 99 12/28/17 17:00 12/28/17 18:00 12/28/17 19:00 Temperature 98.3 F Pulse Rate 88 98 H 84 Respiratory Rate 20 Blood Pressure 104/71 Pulse Oximetry 95 12/28/17 20:00 12/28/17 21:00 12/28/17 22:00 Temperature Pulse Rate 88 96 H 90 Respiratory Rate Blood Pressure Pulse Oximetry 95 12/28/17 22:10 12/28/17 23:00 12/29/17 00:00 Temperature 97.8 F Pulse Rate 76 88 Respiratory Rate 20 Blood Pressure 115/53 L Pulse Oximetry 100 94 L 12/29/17 01:00 12/29/17 02:00 12/29/17 03:00 Temperature 98.3 F Pulse Rate 90 84 73 Respiratory Rate 20 Blood Pressure 95/49 L Pulse Oximetry 95 12/29/17 03:50 12/29/17 04:00 12/29/17 05:00 Temperature Pulse Rate 73 88 Respiratory Rate Blood Pressure Pulse Oximetry 100 12/29/17 06:00 Temperature Pulse Rate 81 Respiratory Rate Blood Pressure Pulse Oximetry Intake & Output 12/28/17 12/29/17 12/29/17 18:59 06:59 18:59 Intake Total 600 / 600 420 / 420 Output Total 1200 / 1200 875 / 875 Balance -600 / -600 -455 / -455 Weight 154.3 kg Intake: Oral 600 / 600 420 / 420 Output: Urine 1200 / 1200 875 / 875 Narrative: Alert Morbidly obese Wearing Bipap, not orthopneic Chest diminished BS CV S1S2 distant RRR Ext: edema improved - wrinkling of skin LE Results 12/29/17 10:34 12/29/17 07:27 Assessment and Plan - Assessment (1) Acute on chronic diastolic CHF (congestive heart failure) Code(s): I50.33 - Acute on chronic diastolic (congestive) heart failure Status : Acute Plan: Adequately diuresing (2) Anemia Code(s): D64.9 - Anemia, unspecified Status: Acute Plan: Per primary service (3) Pickwickian syndrome Code(s): E66.2 - Morbid (severe) obesity with alveolar hypoventilation Status : Acute Plan: Advise pulmonary consult (4) Hypokalemia Code(s): E87.6 - Hypokalemia Status: Acute Plan: Increase KCL supp (5) Morbid obesity Code(s): E66.01 - Morbid (severe) obesity due to excess calories Status: Acute
[2017-12-29 08:36] LABS: Alanine Aminotransferase 14 U/L (12-78); Albumin 2.1 g/dL (3.4-5.0); Alkaline Phosphatase 64 U/L (45-117); Anion Gap 8 meq/L (5-15); Aspartate Aminotransferase 45 U/L (15-37); Blood Urea Nitrogen 32 mg/dL (7-18); Calcium 8.2 mg/dL (8.5-10.1); Carbon Dioxide 33.9 meq/L (21.0-32.0); Chloride 102 meq/L (98-107); Glomerular Filtration Rate 45 mL/min (>89); Glucose,Random 54 mg/dL (74-106); Magnesium 2.1 mg/dL (1.5-2.5); Sodium 144 meq/L (136-145); Total Protein 7.8 g/dL (6.4-8.2)
--- NOTE | 2017-12-29 08:42 | XR ---
EXAM DATE: 12/29/2017 8:35 AM EDT AGE/SEX: 77 years / Male INDICATIONS: Shortness of breath. CLINICAL DATA: This is the patient's subsequent encounter. Patient reports that signs and symptoms h ave been present for 3 days and indicates a pain score of 0/10. MEDICAL/SURGICAL HISTORY: Congestive heart failure. None. COMPARISON: [facility] [place] [facility] [place] 1[place] SING[place], 12/27/2017. . FINDINGS: The heart is enlarged. Diffuse pulmonary infiltrates are noted consistent with moderate pulmonary jose ma versus pneumonia. Clinical correlation is recommended. CONCLUSION: 1. Cardiomegaly. 2. Diffuse pulmonary infiltrates consistent with moderate pulmonary edema versus pneumonia. Clinical correlation is recommended. Electronically signed by: Justin Choudhary MD 12/29/2017 8:41 AM EDT
[2017-12-29 09:01] LABS: Potassium 2.9 meq/L (3.5-5.1)
[2017-12-29] MEDS: Rivaroxaban 20 MG Tablet PO SCH (09:44)
[2017-12-29] MEDS: Potassium Chlor 20 mEq Premix 20 MEQ/100 ML PIGGYBACK IV.SIG SCH ×2 (09:59→13:33)
[2017-12-29 10:57] LABS: ABG Base Excess 9.9 mmol/L (-2-2); ABG PCO2 50 mmHg (38-42); ABG PO2 79 mmHG (61-120)
[2017-12-29 10:59] LABS: Baso % (Auto) 0.7 % (0.0-2.0); Eos # (Auto) 0.1 th/mm3 (0.0-0.4); Eos % (Auto) 1.6 % (0.0-4.0); Hematocrit 23.8 % (39.0-51.0); Hemoglobin 7.5 gm/dL (13.0-17.0); Lymph % (Auto) 16.3 % (9.0-44.0); Mean Corpuscular HGB Conc 31.5 % (32.0-36.0); Mean Corpuscular Volume 76.2 fL (80.0-100.0); Mean Platelet Volume 9.7 fL (7.0-11.0); Mono # (Auto) 0.7 th/mm3 (0.0-0.9); Mono % (Auto) 12.1 % (0.0-8.0); Neut # (Auto) 4.1 th/mm3 (1.8-7.7); Neut % (Auto) 69.3 % (16.0-70.0); Platelet Count 192 th/mm3 (150-450); Red Blood Count 3.13 mil/mm3 (4.50-5.90); Red Cell Distribution Width 17.1 % (11.6-17.2)
--- NOTE | 2017-12-29 11:21 | MB ---
cc: Braxton West MD DATE: 12/29/2017 REASON FOR CONSULTATION: Shortness of breath and possible pneumonia. REFERRING PHYSICIAN: Earlene Morrow MD HISTORY OF PRESENT ILLNESS: The patient is a 77-year-old male with a past medical history of CHF, COPD, hypertension, diabetes mellitus, morbid obesity, who presented to ED on 12/27/2017 for progressive worsening shortness of breath for the past 1 week. He denies any associated symptoms of chest pain, cough, fever or any constitutional symptoms. On arrival, the patient was started on BiPAP and was given Lasix 60 mg IV push. His laboratory data is significant for leukocytosis with a WBC of 13.2. In addition, the patient had mild renal dysfunction with a creatinine of 1.73. ABG was performed on BiPAP 15/5 with 50% FiO2, which showed a pH of 7.41, CO2 of 49, pO2 of 59, bicarbonate 30, saturations 85%. His initial chest x-ray showed mild pulmonary vascular congestion. A repeat chest x-ray from this morning showed diffuse pulmonary infiltrates and cardiomegaly. He was seen by Dr. Jefferson from the cardiology service, and the patient underwent an echocardiogram yesterday which showed an EF of 40% and distal and anterior apical and apical hypokinesis. The patient was started on antibiotics and diuretics. When seen, he was on BiPAP 10/4 with 40% FiO2. He denies any use of home oxygen or CPAP machine at home. PAST MEDICAL HISTORY: Significant for CHF, COPD, hypertension, diabetes mellitus, morbid obesity. ALLERGIES: NO KNOWN DRUG ALLERGIES. SOCIAL HISTORY: Remote history of tobacco use. He quit smoking in 1977, occasional drinker. CURRENT MEDICATIONS: 1. Lasix. 2. Levaquin. 3. Pravastatin. 4. Xarelto. 5. Lyrica. REVIEW OF SYSTEMS: As per HPI, rest of review of systems is unremarkable. PHYSICAL EXAMINATION: GENERAL: A 77-year-old male lying in bed in mild respiratory distress on the BiPAP. VITAL SIGNS: Temperature 98.3, pulse of 76, blood pressure 118/62, saturation 95%-100%. HEENT: Atraumatic, normocephalic. Pupils are equal, round, reactive to light and accommodation. Extraocular muscles intact. Conjunctivae pink. Nonicteric sclerae. Oral mucosa within normal. NECK: Supple. No JVD, adenopathy or thyromegaly. Trachea in the midline. CARDIOVASCULAR: Regular rate and rhythm. Normal S1, S2. No murmurs, rubs or gallops noted. PULMONARY: Bilateral equal air entry. ABDOMEN: Soft, obese, nontender. No distention. Positive bowel sounds. EXTREMITIES: No cyanosis, clubbing, erythema or edema. Right lower extremity greater than left lower extremity extensive stasis dermatitis noted. NEUROLOGIC: No focal sensory deficit. LABORATORY DATA: WBC 13.2, hemoglobin 8, hematocrit 25, platelet count of 244. Sodium 144, potassium 2.9, chloride 102, CO2 of 33, BUN 32, creatinine 1.5, glucose of 54. RADIOGRAPHIC STUDIES: Chest x-ray showed pulmonary diffuse pulmonary infiltrates and cardiomegaly. IMPRESSION: 1. Acute hypoxemic and hypercapnic respiratory insufficiency. 2. Diffuse bilateral pulmonary infiltrates. Differential diagnosis of pulmonary edema versus pneumonia. 3. Morbid obesity and likely obstructive sleep apnea. 4. Leukocytosis. 5. Acute kidney injury. 6. Anemia. 7. Questionable chronic obstructive pulmonary disease. 8. Hypertension. 9. Diabetes mellitus. RECOMMENDATIONS: 1. Continue with oxygen and maintain saturations above 92%. 2. Place on bronchodilators in the form of DuoNeb every 4 hours plus every 2 hours p.r.n. for shortness of breath and start Solu-Medrol 60 mg IV every 8 hours. 3. Continue with BiPAP p.r.n. and nocturnally for respiratory distress. 4. Will proceed with CT scan of the chest without contrast for further evaluation of pulmonary parenchyma. 5. Continue with antibiotics in the form of Levaquin and monitor for signs of infection, which include fever and WBC. Follow up on blood cultures. His nasal washing screening for influenza is negative. I will check Streptococcus pneumoniae and Legionella urinary antigen and sputum culture with Gram stain. 6. Will obtain a Doppler ultrasound of the lower extremity to rule out DVT. The patient is also on diuretics and cardiology is following, Dr. Jefferson. 7. Monitor renal function and electrolyte replacement as needed. 8. Check arterial blood gas. 9. GI and DVT prophylaxis. He is on Xarelto 20 mg daily. 10. Further recommendations will be based on hospital course. Thank you for this consultation and allowing us to participate in this patient's care. MD Alisha Harden , 10:50 AM , 11:02 AM
--- NOTE | 2017-12-29 11:54 | US ---
EXAM DATE: 12/29/2017 11:51 AM EDT AGE/SEX: 77 years / Male INDICATIONS: Bilateral leg edema. CLINICAL DATA: This is the patient's initial encounter. Patient reports that signs and symptoms have been present for 1 day and indicates a pain score of 0/10. MEDICAL/SURGICAL HISTORY: Congestive heart failure. Chronic obstructive pulmonary disease. Di abetes mellitus type II. Atrial fibrillation. Hypertension. None. COMPARISON: No prior exams available for comparison. TECHNIQUE: Venous ultrasound of both lower extremities was performed from the inguinal ligament to t he proximal calf. Real-time, color Doppler and spectral tracing, compression and augmentation techni ques were used. FINDINGS: Right Leg: Normal compression of the deep venous system from the inguinal region to the proximal sandro f. No echogenic clot is seen. Normal response of the venous system to augmentation and respiration. Left Leg: Normal compression of the deep venous system from the inguinal region to the proximal calf . No echogenic clot is seen. Normal response of the venous system to augmentation and respiration. Other: None. CONCLUSION: 1. Limited by body habitus otherwise negative for deep venous thrombosis. Electronically signed by: Dwayne Bautista MD 12/29/2017 11:52 AM EDT
--- NOTE | 2017-12-29 12:35 | P.PN ---
Subjective Interval history: Follow up for CHF exacerbation. Patient is doing well. On BiPAP. No CP, fever, chills. Physical Exam Vital signs: Vital Signs 12/28/17 13:00 12/28/17 14:00 12/28/17 15:00 Temperature 97.7 F Pulse Rate 89 93 H 93 H Respiratory Rate 18 Blood Pressure 126/67 Pulse Oximetry 99 12/28/17 16:00 12/28/17 17:00 12/28/17 18:00 Temperature Pulse Rate 94 H 88 98 H Respiratory Rate Blood Pressure Pulse Oximetry 12/28/17 19:00 12/28/17 20:00 12/28/17 21:00 Temperature 98.3 F Pulse Rate 84 88 96 H Respiratory Rate 20 Blood Pressure 104/71 Pulse Oximetry 95 95 12/28/17 22:00 12/28/17 22:10 12/28/17 23:00 Temperature 97.8 F Pulse Rate 90 76 Respiratory Rate 20 Blood Pressure 115/53 L Pulse Oximetry 100 94 L 12/29/17 00:00 12/29/17 01:00 12/29/17 02:00 Temperature Pulse Rate 88 90 84 Respiratory Rate Blood Pressure Pulse Oximetry 12/29/17 03:00 12/29/17 03:50 12/29/17 04:00 Temperature 98.3 F Pulse Rate 73 73 Respiratory Rate 20 Blood Pressure 95/49 L Pulse Oximetry 95 100 12/29/17 05:00 12/29/17 06:00 12/29/17 07:00 Temperature Pulse Rate 88 81 76 Respiratory Rate Blood Pressure Pulse Oximetry Intake & Output 12/28/17 12/29/17 12/29/17 18:59 06:59 18:59 Intake Total 600 / 600 420 / 420 Output Total 1200 / 1200 875 / 875 Balance -600 / -600 -455 / -455 Weight 154.3 kg Intake: Oral 600 / 600 420 / 420 Output: Urine 1200 / 1200 875 / 875 Narrative: GENERAL: AOx3, NAD. Morbidly obese. Currently on BiPAP. SKIN: Warm and dry. HEAD: Normocephalic. EYES: No scleral icterus. No injection or drainage. NECK: Supple, trachea midline. No JVD or lymphadenopathy. CARDIOVASCULAR: Regular rate and rhythm without murmurs, gallops, or rubs. RESPIRATORY: Breath sounds equal bilaterally. No accessory muscle use. GASTROINTESTINAL: Abdomen soft, non-tender, nondistended. MUSCULOSKELETAL: No cyanosis. Extensive stasis dermatitis, lymphedema in both legs. BACK: Nontender without obvious deformity. No CVA tenderness. Results - Labs CBC & Chem 7: 12/29/17 10:34 12/29/17 07:27 Laboratory Results - last 24 hr 12/28/17 12/28/17 12/29/17 15:55 19:40 02:38 WBC RBC Hgb Hct MCV MCH MCHC RDW Plt Count MPV Neut % (Auto) Lymph % (Auto) [place] % (Auto) Eos % (Auto) Baso % (Auto) Neut # (Auto) Lymph # (Auto) [place] # (Auto) Eos # (Auto) Baso # (Auto) WBC Differential Differential Comment Puncture Site Patient Temperature O2 Saturation ABG pH ABG pCO2 ABG pO2 ABG HCO3 ABG O2 Content ABG Base Excess ABG Methemoglobin Eitan Test Hemoglobin Carboxyhemoglobin O2 Delivery Device Vent Setting Inspired O2 Critical Value Sodium Potassium Chloride Carbon Dioxide Anion Gap BUN Creatinine Estimated GFR POC Glucose 117 H 110 110 Random Glucose Calcium Magnesium Total Bilirubin AST ALT Alkaline Phosphatase Total Protein Albumin 12/29/17 12/29/17 12/29/17 07:27 08:12 10:06 WBC RBC Hgb Hct MCV MCH MCHC RDW Plt Count MPV Neut % (Auto) Lymph % (Auto) [place] % (Auto) Eos % (Auto) Baso % (Auto) Neut # (Auto) Lymph # (Auto) [place] # (Auto) Eos # (Auto) Baso # (Auto) WBC Differential Differential Comment Puncture Site Patient Temperature O2 Saturation ABG pH ABG pCO2 ABG pO2 ABG HCO3 ABG O2 Content ABG Base Excess ABG Methemoglobin Eitan Test Hemoglobin Carboxyhemoglobin O2 Delivery Device Vent Setting Inspired O2 Critical Value Sodium 144 Potassium 2.9 L* Chloride 102 Carbon Dioxide 33.9 H Anion Gap 8 BUN 32 H Creatinine 1.51 H Estimated GFR 45 L POC Glucose 68 138 H Random Glucose 54 L D Calcium 8.2 L Magnesium 2.1 Total Bilirubin 0.3 AST 45 H ALT 14 Alkaline Phosphatase 64 Total Protein 7.8 D Albumin 2.1 L 12/29/17 12/29/17 12/29/17 10:32 10:34 12:18 WBC 6.0 RBC 3.13 L Hgb 7.5 L Hct 23.8 L MCV 76.2 L MCH 24.0 L MCHC 31.5 L RDW 17.1 Plt Count 192 MPV 9.7 Neut % (Auto) 69.3 Lymph % (Auto) 16.3 [place] % (Auto) 12.1 H Eos % (Auto) 1.6 Baso % (Auto) 0.7 Neut # (Auto) 4.1 Lymph # (Auto) 1.0 [place] # (Auto) 0.7 Eos # (Auto) 0.1 Baso # (Auto) 0.0 WBC Differential . Differential Comment Auto diff final Puncture Site Right radial Patient Temperature 98.6 O2 Saturation 92 ABG pH 7.45 H ABG pCO2 50 H ABG pO2 79 ABG HCO3 34 H ABG O2 Content 16.7 ABG Base Excess 9.9 H ABG Methemoglobin 1.8 [place] Test Present Hemoglobin 12.9 Carboxyhemoglobin 1.5 O2 Delivery Device Bipap Vent Setting 15/5peep Inspired O2 40 Critical Value No Sodium Potassium Chloride Carbon Dioxide Anion Gap BUN Creatinine Estimated GFR POC Glucose 128 H Random Glucose Calcium Magnesium Total Bilirubin AST ALT Alkaline Phosphatase Total Protein Albumin Microbiology 12/27/17 14:30 Blood - Peripheral Aerobic Blood Culture - Preliminary No growth in 2 days 12/27/17 14:30 Blood - Peripheral Anaerobic Blood Culture - Preliminary No growth in 2 days 12/27/17 14:45 Blood - Peripheral Aerobic Blood Culture - Preliminary No growth in 2 days 12/27/17 14:45 Blood - Peripheral Anaerobic Blood Culture - Preliminary No growth in 2 days - Imaging Impressions Chest X-Ray 12/29/17 08:08 CONCLUSION: 1. Cardiomegaly. 2. Diffuse pulmonary infiltrates consistent with moderate pulmonary edema versus pneumonia. Clinical correlation is recommended. Venous Doppler Study 12/29/17 10:40 CONCLUSION: 1. Limited by body habitus otherwise negative for deep venous thrombosis. Assessment and Plan - Assessment (1) Acute exacerbation of CHF (congestive heart failure) Code(s): I50.9 - Heart failure, unspecified Status: Acute (2) Pneumonia Code(s): J18.9 - Pneumonia, unspecified organism Status: Acute - Plan Mr. Rader is a pleasant 77 year old male with a history of morbid obesity, CHF, HTN who presents to the ED due to worsening dyspnea that started about 3 weeks ago. 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 - Cardiology evaluated patient, recommended to continue Lasix. - Lasix 40mg IV BID - 2D echo shows EF 40%. - Hold off Beta jim or CCB due to acute CHF. - Clonazepam due to anxiety. - Will consult pulmonary. May need an outpatient sleep study. Hypostatic pneumonia - Despite IV lasix, abx, CXR does not show significant improvement. - CXR inconclusive. However, patient's WBC is elevated. - Will treat with Levaquin 750mg Q48hrs X 3 doses. - Appreciate Pulmonary input. Possible Afib - Patient takes Xarelto. Likely from Afib. Diabetes mellitus - sliding scale insulin. Levemir discontinued. Patient had low BG levels. - If needed, consider starting low dose Levemir 5 units QHS. Morbid obesity Bilateral lower ext lymphedema Severe stasis dermatitis - Appreciate wound care for recommendations. Full code. Xarelto. (1) Acute exacerbation of CHF (congestive heart failure) Qualifiers: Heart failure type: unspecified Qualified Code(s): I50.9 - Heart failure, unspecified (2) Pneumonia Qualifiers: Pneumonia type: due to unspecified organism Laterality: right Lung location : lower lobe of lung Qualified Code(s): J18.1 - Lobar pneumonia, unspecified organism
[2017-12-29] MEDS: MethylPREDNISolone Sod Succinate Inj 125 MG/2 ML Vial IV.PUSH SCH ×2 (13:33→22:30)
[2017-12-29] MEDS: Insulin Detemir Inj 1,000 UNIT/10 ML Vial SQ SCH (18:45)
[2017-12-29] MEDS: levoFLOXacin 750 MG Tablet PO SCH (22:35)
[2017-12-30] MEDS: clonazePAM 1 MG Tablet PO SCH ×2 (03:38→12:13)
[2017-12-30] MEDS: MethylPREDNISolone Sod Succinate Inj 125 MG/2 ML Vial IV.PUSH SCH ×3 (03:38→21:06)
[2017-12-30] MEDS: Insulin NovoLOG Aspart Correctional Sugar Inj SQ SCH ×5 (03:39→21:07)
[2017-12-30 05:10] LABS: Hematocrit 25.8 % (39.0-51.0); Lymph # (Auto) 0.7 th/mm3 (1.0-4.8); Lymph % (Auto) 13.3 % (9.0-44.0); Mean Corpuscular HGB Conc 31.2 % (32.0-36.0); Mean Corpuscular Hemoglobin 23.9 pg (27.0-34.0); Mean Corpuscular Volume 76.8 fL (80.0-100.0); Mean Platelet Volume 9.9 fL (7.0-11.0); Mono # (Auto) 0.1 th/mm3 (0.0-0.9); Mono % (Auto) 1.3 % (0.0-8.0); Neut # (Auto) 4.7 th/mm3 (1.8-7.7); Neut % (Auto) 85.4 % (16.0-70.0); Platelet Count 195 th/mm3 (150-450); Red Blood Count 3.35 mil/mm3 (4.50-5.90); Red Cell Distribution Width 17.5 % (11.6-17.2); White Blood Count 5.4 th/mm3 (4.0-11.0)
[2017-12-30 05:33] LABS: Calcium 8.4 mg/dL (8.5-10.1); Carbon Dioxide 31.3 meq/L (21.0-32.0); Magnesium 2.4 mg/dL (1.5-2.5); Potassium 3.9 meq/L (3.5-5.1)
[2017-12-30] MEDS: Rivaroxaban 20 MG Tablet PO SCH (08:13)
--- NOTE | 2017-12-30 09:38 | P.PNPL ---
Subjective Interval history: Patient is on BIPAP with 40% FIO2. Afebrile, awake and alert feeling better. Physical Exam Vital signs: Vital Signs 12/29/17 10:00 12/29/17 11:00 12/29/17 12:00 Temperature 98.9 F Pulse Rate 87 89 93 H Respiratory Rate 26 H Blood Pressure 118/62 Pulse Oximetry 95 12/29/17 12:44 12/29/17 13:00 12/29/17 14:00 Temperature Pulse Rate 80 92 H 82 Respiratory Rate 25 H Blood Pressure Pulse Oximetry 95 12/29/17 15:00 12/29/17 16:00 12/29/17 16:46 Temperature 98 F Pulse Rate 84 80 92 H Respiratory Rate 28 H 24 Blood Pressure 116/66 Pulse Oximetry 97 12/29/17 17:00 12/29/17 18:00 12/29/17 19:00 Temperature Pulse Rate 90 82 90 Respiratory Rate Blood Pressure Pulse Oximetry 12/29/17 19:53 12/29/17 20:00 12/29/17 21:00 Temperature 97 F L Pulse Rate 92 H 90 90 Respiratory Rate 24 28 H Blood Pressure 112/78 Pulse Oximetry 96 96 12/29/17 22:00 12/29/17 22:52 12/29/17 23:00 Temperature Pulse Rate 78 92 H Respiratory Rate Blood Pressure Pulse Oximetry 97 12/30/17 00:00 12/30/17 01:00 12/30/17 02:00 Temperature Pulse Rate 90 84 76 Respiratory Rate 28 H Blood Pressure 135/79 Pulse Oximetry 99 12/30/17 03:00 12/30/17 03:12 12/30/17 03:13 Temperature Pulse Rate 81 79 Respiratory Rate 21 Blood Pressure Pulse Oximetry 95 12/30/17 04:00 12/30/17 05:00 12/30/17 06:00 Temperature Pulse Rate 92 H 80 80 Respiratory Rate 24 Blood Pressure 123/73 Pulse Oximetry 95 12/30/17 07:30 Temperature Pulse Rate 83 Respiratory Rate 22 Blood Pressure Pulse Oximetry Intake & Output 12/29/17 12/30/17 12/30/17 18:59 06:59 18:59 Intake Total 440 / 440 240 / 240 Output Total 0 / 0 500 / 500 Balance 440 / 440 -260 / -260 Weight 153.4 kg Intake: IV 200 / 200 KCl 20 mEq Premix Inj 20 meq In 200 / 200 100 ml @ 50 mls/hr IV.SIG Q2H [facility]OMARA Rx#:[id number] Oral 240 / 240 240 / 240 Output: Urine 0 / 0 500 / 500 Other: Date of Last Bowel Movement 12/27/17 # Bowel Movements 0 - Constitutional no acute distress, morbidly obese - Routine HEENT Exam Head: Present: normocephalic, atraumatic Eye: Present: EOMI, PERRL, normal accommodation, conjunctivae pink ENT: Present: mucous membranes moist - Routine Neck Exam Present: supple, full ROM, trachea midline - Routine Respiratory Exam Present: CTA bilaterally - Routine Cardiovascular Exam Present: RRR, S1, S2 - Routine Abdominal Exam Present: soft, normoactive bowel sounds, distended - Routine Extremities Exam Present: edema - Routine Skin Exam Present: intact, erythema, dry - Routine Neurological Exam Present: alert, oriented X3, CN II-XII intact - Routine Psychiatric Exam Present: normal affect Assessment and Plan - Plan 1. Acute hypoxemic and hypercapnic respiratory insufficiency. 2. Diffuse bilateral pulmonary infiltrates. Ddx: pulmonary edema versus pneumonia. 3. Morbid obesity and likely obstructive sleep apnea. 4. Leukocytosis. 5. Acute kidney injury. 6. Anemia. 7. ? COPD. 8. Hypertension. 9. Diabetes mellitus. Plan Continue with oxygen and maintain saturations above 92%. Bronchodilators( DuoNeb) Solu-Medrol 60 mg IV every 8 hours. Continue with BiPAP p.r.n. and nocturnally Check CT scan of the chest without contrast for further evaluation of pulmonary parenchyma. Continue with abx(Levaquin) and monitor for signs of infection(fever and WBC). Follow up on blood Cultures. Nasal washing screening for influenza is negative. check Streptococcus pneumoniae and Legionella urinary antigen pending Doppler US LE : limited study due to body habitus otherwise negative for DVT On Diuretics- Lasix 40mg BID, cardiology is following, Dr. Jefferson. Monitor renal function and electrolyte replacement as needed. GI and DVT prophylaxis. He is on Xarelto 20 mg daily. Continue treatment plan
--- NOTE | 2017-12-30 13:45 | P.PNCA ---
Subjective Interval history: Follow up for Dr. Jefferson Starting to breath a bit better, has been on BIPAP since being in the hospital which has helped Medications and Allergies Active Medications: Active Medications Acetaminophen (Tylenol) 650 mg PO Q4H PRN PRN Reason: Headache, fever, pain 1-4 Al Hydroxide/Mg Hydroxide (Milk Of Magnesia Liq) 30 ml PO Q12H PRN PRN Reason: Mild Constipation Albuterol (Duoneb Neb (Prn)) 1 ampul NEB Q2HR NEB PRN PRN Reason: DYSPNEA Albuterol (Duoneb Neb ([facility])) 1 ampul NEB Q4HR NEB [facility] Last Admin: 12/30/17 11:25 Dose: 1 ampul Bisacodyl (Dulcolax Supp) 10 mg RECTAL DAILY PRN PRN Reason: SEVERE CONSITIPATION Clonazepam (Klonopin) 1 mg PO Q8H [facility] Last Admin: 12/30/17 12:13 Dose: 1 mg Dextrose (D50w Vial) 50 ml IV.PUSH UNSCH PRN PRN Reason: PER HYPOGLYCEMIA PROTOCOL Furosemide (Lasix Inj) 40 mg IV.PUSH BID@0900,1800 [facility] Last Admin: 12/30/17 08:19 Dose: 40 mg Glucagon (Glucagon Inj) 1 mg OTHER PRN PRN PRN Reason: for Hypoglycemia Protocol Insulin Aspart (Novolog Insulin Correctional Sugar Inj) 0 unit SQ ACHS AND 3AM [facility]; Protocol Last Admin: 12/30/17 12:15 Dose: 5 unit Lactulose (Lactulose Liq) 30 ml PO DAILY PRN PRN Reason: SEVERE CONSITIPATION Levofloxacin (Levaquin) 750 mg PO Q48H [facility] Stop: 12/31/17 22:16 Last Admin: 12/29/17 22:35 Dose: 750 mg Methylprednisolone Sodium Succinate (Solumedrol Inj) 60 mg IV.PUSH Q8H [facility] Last Admin: 12/30/17 12:14 Dose: 60 mg Ondansetron HCl (Zofran Inj) 4 mg IV.PUSH Q6H PRN PRN Reason: NAUSEA OR VOMITING Potassium Chloride (Klor-Con 10) 20 meq PO QID [facility] Last Admin: 12/30/17 12:13 Dose: 20 meq Pravastatin Sodium (Pravachol) 20 mg PO QPM [facility] Last Admin: 12/29/17 17:28 Dose: 20 mg Pregabalin (Lyrica) 300 mg PO BID [facility] Last Admin: 12/30/17 08:13 Dose: 300 mg Rivaroxaban (Xarelto) 20 mg PO DAILY [facility] Last Admin: 12/30/17 08:13 Dose: 20 mg Sennosides (Senokot) 17.2 mg PO Q12H PRN PRN Reason: Moderate Constipation Terazosin HCl (Hytrin) 10 mg PO HS [facility] Last Admin: 12/29/17 22:34 Dose: 10 mg Allergies Allergy/AdvReac Type Severity Reaction Status Date / Time No Known Allergies Allergy Unverified 12/27/17 11:57 Home Medications Medication Instructions Recorded Confirmed Type bumetanide 1 mg PO BID 12/27/17 12/27/17 History febuxostat [Uloric] 40 mg PO DAILY 12/27/17 12/27/17 History insulin aspart U-100 [Novolog 36 unit SUB-Q TIDAC 12/27/17 12/27/17 History Flexpen U-100 Insulin] insulin degludec [Tresiba 76 unit SUB-Q BID 12/27/17 12/27/17 History FlexTouch U-100] linaclotide [Linzess] 290 mcg PO DAILY 12/27/17 12/27/17 History metolazone 5 mg PO QAM 12/27/17 12/27/17 History potassium chloride [Klor-Con 10] 20 meq PO BID 12/27/17 12/27/17 History pregabalin [Lyrica] 300 mg PO BID 12/27/17 12/27/17 History rivaroxaban [Xarelto] 20 mg PO DAILY 12/27/17 12/27/17 History simvastatin 10 mg PO QPM 12/27/17 12/27/17 History terazosin 10 mg PO HS 12/27/17 12/27/17 History Physical Exam Vital signs: Vital Signs 12/29/17 14:00 12/29/17 15:00 12/29/17 16:00 Temperature 98 F Pulse Rate 82 84 80 Respiratory Rate 28 H Blood Pressure 116/66 Pulse Oximetry 97 12/29/17 16:46 12/29/17 17:00 12/29/17 18:00 Temperature Pulse Rate 92 H 90 82 Respiratory Rate 24 Blood Pressure Pulse Oximetry 12/29/17 19:00 12/29/17 19:53 12/29/17 20:00 Temperature 97 F L Pulse Rate 90 92 H 90 Respiratory Rate 24 28 H Blood Pressure 112/78 Pulse Oximetry 96 96 12/29/17 21:00 12/29/17 22:00 12/29/17 22:52 Temperature Pulse Rate 90 78 Respiratory Rate Blood Pressure Pulse Oximetry 97 12/29/17 23:00 12/30/17 00:00 12/30/17 01:00 Temperature Pulse Rate 92 H 90 84 Respiratory Rate 28 H Blood Pressure 135/79 Pulse Oximetry 99 12/30/17 02:00 12/30/17 03:00 12/30/17 03:12 Temperature Pulse Rate 76 81 79 Respiratory Rate 21 Blood Pressure Pulse Oximetry 12/30/17 03:13 12/30/17 04:00 12/30/17 05:00 Temperature Pulse Rate 92 H 80 Respiratory Rate 24 Blood Pressure 123/73 Pulse Oximetry 95 95 12/30/17 06:00 12/30/17 07:00 12/30/17 07:30 Temperature Pulse Rate 80 81 83 Respiratory Rate 22 Blood Pressure Pulse Oximetry 12/30/17 08:00 12/30/17 09:00 12/30/17 10:00 Temperature 98.1 F Pulse Rate 94 H 96 H 88 Respiratory Rate 24 Blood Pressure 123/64 Pulse Oximetry 94 L 12/30/17 11:27 12/30/17 12:00 Temperature 97.9 F Pulse Rate 89 91 H Respiratory Rate 31 H 30 H Blood Pressure 116/58 L Pulse Oximetry 99 Intake & Output 12/29/17 12/30/17 12/30/17 18:59 06:59 18:59 Intake Total 440 / 440 240 / 240 Output Total 0 / 0 500 / 500 Balance 440 / 440 -260 / -260 Weight 153.4 kg Intake: IV 200 / 200 KCl 20 mEq Premix Inj 20 meq In 200 / 200 100 ml @ 50 mls/hr IV.SIG Q2H [facility] Rx#:[id number] Oral 240 / 240 240 / 240 Output: Urine 0 / 0 500 / 500 Other: Date of Last Bowel Movement 12/27/17 12/27/17 # Bowel Movements 0 Narrative: GENERAL: NAD, AAOx3 SKIN: Warm and dry. HEAD: Atraumatic. Normocephalic. EYES: Pupils equal and round. No scleral icterus. No injection or drainage. ENT: No nasal bleeding or discharge. Mucous membranes pink and moist. NECK: Trachea midline. No JVD. CARDIOVASCULAR: Regular rate and rhythm. RESPIRATORY: No accessory muscle use. Decreased breath sounds bilaterally GASTROINTESTINAL: Abdomen soft, non-tender, nondistended. Hepatic and splenic margins not palpable. MUSCULOSKELETAL: Extremities with 2-3+ edema but better than yesterday per the patient, chronic changes of the skin NEUROLOGICAL: Awake and alert. No obvious cranial nerve deficits. Motor grossly within normal limits. Five out of 5 muscle strength in the arms and legs. Normal speech. PSYCHIATRIC: Appropriate mood and affect; insight and judgment normal. Results 12/30/17 04:29 12/30/17 04:29 Cardiac Enzymes 12/29/17 Range/Units 07:27 AST 45 H (15-37) U/L CBC 12/29/17 12/30/17 Range/Units 10:34 04:29 WBC 6.0 5.4 (4.0-11.0) th/mm3 RBC 3.13 L 3.35 L (4.50-5.90) mil/mm3 Hgb 7.5 L 8.0 L (13.0-17.0) gm/dL Hct 23.8 L 25.8 L (39.0-51.0) % Plt Count 192 195 (150-450) th/mm3 Neut # (Auto) 4.1 4.7 (1.8-7.7) th/mm3 Lymph # (Auto) 1.0 0.7 L (1.0-4.8) th/mm3 [place] # (Auto) 0.7 0.1 (0.0-0.9) th/mm3 Eos # (Auto) 0.1 0.0 (0.0-0.4) th/mm3 Baso # (Auto) 0.0 0.0 (0.0-0.2) th/mm3 Comprehensive Metabolic Panel 12/29/17 12/30/17 Range/Units 07:27 04:29 Sodium 144 144 (136-145) meq/L Potassium 2.9 L* 3.9 D (3.5-5.1) meq/L Chloride 102 101 (98-107) meq/L Carbon Dioxide 33.9 H 31.3 (21.0-32.0) meq/L BUN 32 H 35 H (7-18) mg/dL Creatinine 1.51 H 1.50 H (0.60-1.30) mg/dL Calcium 8.2 L 8.4 L (8.5-10.1) mg/dL AST 45 H (15-37) U/L ALT 14 (12-78) U/L Alkaline Phosphatase 64 (45-117) U/L Total Protein 7.8 D (6.4-8.2) g/dL Albumin 2.1 L (3.4-5.0) g/dL Intake and Output 12/29/17 12/30/17 12/30/17 22:59 06:59 14:59 Intake Total 340 / 340 240 / 240 Output Total 0 / 0 500 / 500 Balance 340 / 340 -260 / -260 Intake: IV 100 / 100 KCl 20 mEq Premix Inj 20 meq In 100 / 100 100 ml @ 50 mls/hr IV.SIG Q2H [facility] Rx#:[id number] Oral 240 / 240 240 / 240 Output: Urine 0 / 0 500 / 500 Other: Date of Last Bowel Movement 12/27/17 12/27/17 12/27/17 # Bowel Movements 0 Weight 153.4 kg - Imaging and Cardiology Imaging: Impressions Chest X-Ray 12/29/17 08:08 CONCLUSION: 1. Cardiomegaly. 2. Diffuse pulmonary infiltrates consistent with moderate pulmonary edema versus pneumonia. Clinical correlation is recommended. Venous Doppler Study 12/29/17 10:40 CONCLUSION: 1. Limited by body habitus otherwise negative for deep venous thrombosis. Assessment and Plan - Assessment (1) Acute on chronic diastolic CHF (congestive heart failure) Code(s): I50.33 - Acute on chronic diastolic (congestive) heart failure Status : Acute Plan: Adequately diuresing (2) Anemia Code(s): D64.9 - Anemia, unspecified Status: Acute Plan: Per primary service (3) Pickwickian syndrome Code(s): E66.2 - Morbid (severe) obesity with alveolar hypoventilation Status : Acute Plan: Advise pulmonary consult (4) Hypokalemia Code(s): E87.6 - Hypokalemia Status: Acute Plan: Increase KCL supp (5) Morbid obesity Code(s): E66.01 - Morbid (severe) obesity due to excess calories Status: Acute - Plan 1) Acute diastolic heart failure Diuresed 1 liter Con't diuresis Plan for Demadex upon discharge to help with diuresis 2) Obesity Most likely obesity hypoventilation syndrome 3) AFib Con't on Xarelto Rates controlled
--- NOTE | 2017-12-30 14:25 | P.PN ---
Subjective Interval history: RN reports pt was doing well last night with 4L NC sats at 98% but pt still wanted BiPap on. Pt thinks NC doesn't help as much as BiPap. Says he doesn't have any DME devices at home whatsoever. Lives by himself. Neighbor present today. Physical Exam Vital signs: Vital Signs 12/29/17 15:00 12/29/17 16:00 12/29/17 16:46 Temperature 98 F Pulse Rate 84 80 92 H Respiratory Rate 28 H 24 Blood Pressure 116/66 Pulse Oximetry 97 12/29/17 17:00 12/29/17 18:00 12/29/17 19:00 Temperature Pulse Rate 90 82 90 Respiratory Rate Blood Pressure Pulse Oximetry 12/29/17 19:53 12/29/17 20:00 12/29/17 21:00 Temperature 97 F L Pulse Rate 92 H 90 90 Respiratory Rate 24 28 H Blood Pressure 112/78 Pulse Oximetry 96 96 12/29/17 22:00 12/29/17 22:52 12/29/17 23:00 Temperature Pulse Rate 78 92 H Respiratory Rate Blood Pressure Pulse Oximetry 97 12/30/17 00:00 12/30/17 01:00 12/30/17 02:00 Temperature Pulse Rate 90 84 76 Respiratory Rate 28 H Blood Pressure 135/79 Pulse Oximetry 99 12/30/17 03:00 12/30/17 03:12 12/30/17 03:13 Temperature Pulse Rate 81 79 Respiratory Rate 21 Blood Pressure Pulse Oximetry 95 12/30/17 04:00 12/30/17 05:00 12/30/17 06:00 Temperature Pulse Rate 92 H 80 80 Respiratory Rate 24 Blood Pressure 123/73 Pulse Oximetry 95 12/30/17 07:00 12/30/17 07:30 12/30/17 08:00 Temperature 98.1 F Pulse Rate 81 83 94 H Respiratory Rate 22 24 Blood Pressure 123/64 Pulse Oximetry 94 L 12/30/17 09:00 12/30/17 10:00 12/30/17 11:00 Temperature Pulse Rate 96 H 88 79 Respiratory Rate Blood Pressure Pulse Oximetry 12/30/17 11:27 12/30/17 12:00 Temperature 97.9 F Pulse Rate 89 91 H Respiratory Rate 31 H 30 H Blood Pressure 116/58 L Pulse Oximetry 99 Intake & Output 12/29/17 12/30/17 12/30/17 18:59 06:59 18:59 Intake Total 440 / 440 240 / 240 Output Total 0 / 0 500 / 500 Balance 440 / 440 -260 / -260 Weight 153.4 kg Intake: IV 200 / 200 KCl 20 mEq Premix Inj 20 meq In 200 / 200 100 ml @ 50 mls/hr IV.SIG Q2H [facility]OMARA Rx#:[id number] Oral 240 / 240 240 / 240 Output: Urine 0 / 0 500 / 500 Other: Date of Last Bowel Movement 12/27/17 12/27/17 # Bowel Movements 0 Narrative: on BiPap Clear lung BL unlabored breathing chronic changes in BL feet Results - Labs CBC & Chem 7: 12/30/17 04:29 01/01/18 05:04 Laboratory Results - last 24 hr 12/29/17 12/29/17 12/30/17 17:15 21:03 03:35 WBC RBC Hgb Hct MCV MCH MCHC RDW Plt Count MPV Neut % (Auto) Lymph % (Auto) [place] % (Auto) Eos % (Auto) Baso % (Auto) Neut # (Auto) Lymph # (Auto) [place] # (Auto) Eos # (Auto) Baso # (Auto) WBC Differential Differential Comment Sodium Potassium Chloride Carbon Dioxide Anion Gap BUN Creatinine Estimated GFR POC Glucose 104 141 H 195 H Random Glucose Calcium Magnesium 12/30/17 12/30/17 12/30/17 04:29 04:29 08:04 WBC 5.4 RBC 3.35 L Hgb 8.0 L Hct 25.8 L MCV 76.8 L MCH 23.9 L MCHC 31.2 L RDW 17.5 H Plt Count 195 MPV 9.9 Neut % (Auto) 85.4 H Lymph % (Auto) 13.3 [place] % (Auto) 1.3 Eos % (Auto) 0.0 Baso % (Auto) 0.0 Neut # (Auto) 4.7 Lymph # (Auto) 0.7 L [place] # (Auto) 0.1 Eos # (Auto) 0.0 Baso # (Auto) 0.0 WBC Differential . Differential Comment Auto diff final Sodium 144 Potassium 3.9 D Chloride 101 Carbon Dioxide 31.3 Anion Gap 12 BUN 35 H Creatinine 1.50 H Estimated GFR 45 L POC Glucose 217 H Random Glucose 166 H D Calcium 8.4 L Magnesium 2.4 12/30/17 12:03 WBC RBC Hgb Hct MCV MCH MCHC RDW Plt Count MPV Neut % (Auto) Lymph % (Auto) [place] % (Auto) Eos % (Auto) Baso % (Auto) Neut # (Auto) Lymph # (Auto) [place] # (Auto) Eos # (Auto) Baso # (Auto) WBC Differential Differential Comment Sodium Potassium Chloride Carbon Dioxide Anion Gap BUN Creatinine Estimated GFR POC Glucose 260 H Random Glucose Calcium Magnesium Microbiology 12/27/17 14:30 Blood - Peripheral Aerobic Blood Culture - Preliminary No growth in 3 days 12/27/17 14:30 Blood - Peripheral Anaerobic Blood Culture - Preliminary No growth in 3 days 12/27/17 14:45 Blood - Peripheral Aerobic Blood Culture - Preliminary No growth in 3 days 12/27/17 14:45 Blood - Peripheral Anaerobic Blood Culture - Preliminary No growth in 3 days Assessment and Plan - Assessment (1) Acute exacerbation of CHF (congestive heart failure) Code(s): I50.9 - Heart failure, unspecified Status: Acute (2) Pneumonia Code(s): J18.9 - Pneumonia, unspecified organism Status: Acute - Plan Mr. Rader is a pleasant 77 year old male with a history of morbid obesity, CHF, HTN who presents to the ED due to worsening dyspnea that started about 3 weeks ago. 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 - Cardiology continuing to diurese w/ Lasix 40mg IV BID - 2D echo shows EF 40%. - plan to resume home bb in next 24-48 hrs - Will start vistaril, stopping klonopin. Hypostatic pneumonia - Despite IV lasix, abx, CXR does not show significant improvement. - CXR inconclusive. However, patient's WBC is elevated. - Will treat with Levaquin 750mg Q48hrs X 3 doses. - Appreciate Pulmonary input. - will obtain procalcitonin, if neg stopping abx. Possible Afib - Patient takes Xarelto. Likely from Afib. Diabetes mellitus - sliding scale insulin. Levemir discontinued. Patient had low BG levels. - If needed, consider starting low dose Levemir 5 units QHS. Morbid obesity Bilateral lower ext lymphedema Severe stasis dermatitis - Appreciate wound care for recommendations. Full code. Xarelto. (1) Acute exacerbation of CHF (congestive heart failure) Qualifiers: Heart failure type: unspecified Qualified Code(s): I50.9 - Heart failure, unspecified (2) Pneumonia Qualifiers: Pneumonia type: due to unspecified organism Laterality: right Lung location : lower lobe of lung Qualified Code(s): J18.1 - Lobar pneumonia, unspecified organism
[2017-12-31] MEDS: Insulin NovoLOG Aspart Correctional Sugar Inj SQ SCH ×5 (03:42→22:05)
[2017-12-31] MEDS: MethylPREDNISolone Sod Succinate Inj 125 MG/2 ML Vial IV.PUSH SCH ×2 (03:43→12:38)
[2017-12-31 06:28] LABS: Calcium 8.5 mg/dL (8.5-10.1); Carbon Dioxide 33.4 meq/L (21.0-32.0); Magnesium 2.5 mg/dL (1.5-2.5); Potassium 4.3 meq/L (3.5-5.1)
[2017-12-31] MEDS: Rivaroxaban 20 MG Tablet PO SCH (09:05)
--- NOTE | 2017-12-31 09:45 | P.PNPL ---
Subjective Interval history: No events overnight. On BIPAP with 40% FIO2. Afebrile. Physical Exam Vital signs: Vital Signs 12/30/17 10:00 12/30/17 11:00 12/30/17 11:27 Temperature Pulse Rate 88 79 89 Respiratory Rate 31 H Blood Pressure Pulse Oximetry 12/30/17 12:00 12/30/17 13:00 12/30/17 14:00 Temperature 97.9 F Pulse Rate 80 74 88 Respiratory Rate 30 H Blood Pressure 116/58 L Pulse Oximetry 99 12/30/17 15:00 12/30/17 15:45 12/30/17 16:00 Temperature 97.5 F L Pulse Rate 79 90 84 Respiratory Rate 22 30 H Blood Pressure 117/65 Pulse Oximetry 97 12/30/17 16:07 12/30/17 17:00 12/30/17 18:00 Temperature Pulse Rate 88 95 H Respiratory Rate Blood Pressure Pulse Oximetry 93 L 12/30/17 19:00 12/30/17 20:00 12/30/17 20:30 Temperature 97.7 F Pulse Rate 85 87 Respiratory Rate 18 Blood Pressure 106/60 Pulse Oximetry 99 98 12/30/17 20:34 12/30/17 21:00 12/30/17 22:00 Temperature Pulse Rate 93 H 86 82 Respiratory Rate 23 Blood Pressure Pulse Oximetry 12/30/17 23:00 12/30/17 23:27 12/30/17 23:29 Temperature Pulse Rate 88 89 Respiratory Rate 17 Blood Pressure Pulse Oximetry 97 12/31/17 00:00 12/31/17 01:00 12/31/17 02:00 Temperature Pulse Rate 92 H 78 86 Respiratory Rate 20 Blood Pressure 113/64 Pulse Oximetry 96 12/31/17 03:00 12/31/17 04:00 12/31/17 04:10 Temperature Pulse Rate 92 H 90 Respiratory Rate 28 H Blood Pressure 111/60 Pulse Oximetry 96 96 12/31/17 04:16 12/31/17 05:00 12/31/17 06:00 Temperature Pulse Rate 83 82 79 Respiratory Rate 25 H Blood Pressure Pulse Oximetry 12/31/17 07:00 12/31/17 07:27 12/31/17 08:49 Temperature Pulse Rate 91 H 89 Respiratory Rate 26 H Blood Pressure Pulse Oximetry 98 Intake & Output 12/30/17 12/31/17 12/31/17 18:59 06:59 18:59 Intake Total 740 / 740 480 / 480 Output Total 550 / 550 875 / 875 Balance 190 / 190 -395 / -395 Weight 204.4 kg 154 kg Intake: Oral 740 / 740 480 / 480 Output: Urine 550 / 550 875 / 875 Other: Date of Last Bowel Movement 12/27/17 12/27/17 # Bowel Movements 0 - Constitutional no acute distress - Routine HEENT Exam Head: Present: normocephalic, atraumatic Eye: Present: EOMI, PERRL, normal accommodation, conjunctivae pink ENT: Present: mucous membranes moist - Routine Neck Exam Present: supple, full ROM, trachea midline - Routine Respiratory Exam Present: CTA bilaterally - Routine Cardiovascular Exam Present: RRR, S1, S2 - Routine Extremities Exam Present: edema - Routine Skin Exam Present: intact, dry - Routine Neurological Exam Present: alert, oriented X3 Assessment and Plan - Plan 1. Acute hypoxemic and hypercapnic respiratory insufficiency. 2. Diffuse bilateral pulmonary infiltrates. Ddx: pulmonary edema versus pneumonia. 3. Morbid obesity and likely obstructive sleep apnea. 4. Leukocytosis. 5. Acute kidney injury. 6. Anemia. 7. ? COPD. 8. Hypertension. 9. Diabetes mellitus. Plan Continue with oxygen and maintain saturations above 92%. Bronchodilators( DuoNeb) Solu-Medrol 60 mg IV every 8 hours. Continue with BiPAP p.r.n. and nocturnally Awaiting CT chest Continue with abx(Levaquin) and monitor for signs of infection(fever and WBC). Follow up on blood Cultures. Nasal washing screening for influenza is negative. Streptococcus pneumoniae and Legionella urinary antigen negative Doppler US LE : limited study due to body habitus otherwise negative for DVT On Diuretics- Lasix 40mg BID, cardiology is following, Dr. Jefferson. Monitor renal function and electrolyte replacement as needed. GI and DVT prophylaxis. on Xarelto 20 mg daily. Continue treatment plan
--- NOTE | 2017-12-31 11:38 | CT ---
EXAM DATE: 12/31/2017 11:30 AM EDT AGE/SEX: 77 years / Male INDICATIONS: Shortness of breath. CLINICAL DATA: This is the patient's initial encounter. Patient reports that signs and symptoms have been present for 1 day and indicates a pain score of 0/10. MEDICAL/SURGICAL HISTORY: Congestive heart failure. Chronic obstructive pulmonary disease. Diabet es. None. RADIATION DOSE: 22.3 CTDI (mGy) ; Patient body habitus COMPARISON: No prior exams available for comparison. TECHNIQUE: Multiple contiguous axial images were obtained through the chest without contrast. Image s were obtained in suspended respiration using multiple row detector helical technique. Using automa ifeanyi exposure control and adjustment of the mA and/or kV according to patient size, radiation dose was kept as low as reasonably achievable to obtain optimal diagnostic quality images. DICOM format imag e data is available electronically for review and comparison. FINDINGS: Lungs: Moderate bibasilar parenchymal changes and interstitial edema is present There is no axillary or mediastinal adenopathy. There is mild cardiomegaly without pericardial effusi on. Moderate coronary calcifications are noted. Upper abdominal contents are grossly unremarkable with only gallstones noted. . CONCLUSION: 1. Moderate bibasilar parenchymal changes and small bilateral pleural effusions are suspicious for c ongestive failure 2. Gallstones in a benign-appearing gallbladder. 3. Marked LAD calcifications. Electronically signed by: Dwayne Bautista MD 12/31/2017 11:37 AM EDT
--- NOTE | 2017-12-31 15:45 | P.PNCA ---
Subjective Interval history: No events overnight Appears overall stable on and off Bipap as needed Medications and Allergies Active Medications: Active Medications Acetaminophen (Tylenol) 650 mg PO Q4H PRN PRN Reason: Headache, fever, pain 1-4 Al Hydroxide/Mg Hydroxide (Milk Of Magnesia Liq) 30 ml PO Q12H PRN PRN Reason: Mild Constipation Albuterol (Duoneb Neb (Prn)) 1 ampul NEB Q2HR NEB PRN PRN Reason: DYSPNEA Albuterol (Duoneb Neb ([place])) 1 ampul NEB Q4HR NEB [facility] Last Admin: 12/31/17 10:54 Dose: 1 ampul Bisacodyl (Dulcolax Supp) 10 mg RECTAL DAILY PRN PRN Reason: SEVERE CONSITIPATION Dextrose (D50w Vial) 50 ml IV.PUSH UNSCH PRN PRN Reason: PER HYPOGLYCEMIA PROTOCOL Glucagon (Glucagon Inj) 1 mg OTHER PRN PRN PRN Reason: for Hypoglycemia Protocol Hydroxyzine Pamoate (Vistaril) 25 mg PO Q8H PRN PRN Reason: ANXIETY Insulin Aspart (Novolog Insulin Correctional Sugar Inj) 0 unit SQ ACHS AND 3AM [place]; Protocol Last Admin: 12/31/17 12:39 Dose: 7 unit Lactulose (Lactulose Liq) 30 ml PO DAILY PRN PRN Reason: SEVERE CONSITIPATION Levofloxacin (Levaquin) 750 mg PO Q48H [facility] Stop: 12/31/17 22:16 Last Admin: 12/29/17 22:35 Dose: 750 mg Lorazepam (Ativan) 0.5 mg PO Q8H PRN PRN Reason: breakthru anxiety Lorazepam (Ativan Inj) 2 mg IV.PUSH ONCE PRN PRN Reason: ANXIETY Methylprednisolone Sodium Succinate (Solumedrol Inj) 60 mg IV.PUSH Q8H [facility] Last Admin: 12/31/17 12:38 Dose: 60 mg Ondansetron HCl (Zofran Inj) 4 mg IV.PUSH Q6H PRN PRN Reason: NAUSEA OR VOMITING Potassium Chloride (Klor-Con 10) 20 meq PO QID [facility] Last Admin: 12/31/17 12:38 Dose: 20 meq Pravastatin Sodium (Pravachol) 20 mg PO QPM [facility] Last Admin: 12/30/17 21:06 Dose: 20 mg Pregabalin (Lyrica) 300 mg PO BID [facility] Last Admin: 12/31/17 09:05 Dose: 300 mg Rivaroxaban (Xarelto) 20 mg PO DAILY [facility] Last Admin: 12/31/17 09:05 Dose: 20 mg Sennosides (Senokot) 17.2 mg PO Q12H PRN PRN Reason: Moderate Constipation Allergies Allergy/AdvReac Type Severity Reaction Status Date / Time No Known Allergies Allergy Unverified 12/27/17 11:57 Home Medications Medication Instructions Recorded Confirmed Type bumetanide 1 mg PO BID 12/27/17 12/27/17 History febuxostat [Uloric] 40 mg PO DAILY 12/27/17 12/27/17 History insulin aspart U-100 [Novolog 36 unit SUB-Q TIDAC 12/27/17 12/27/17 History Flexpen U-100 Insulin] insulin degludec [Tresiba 76 unit SUB-Q BID 12/27/17 12/27/17 History FlexTouch U-100] linaclotide [Linzess] 290 mcg PO DAILY 12/27/17 12/27/17 History metolazone 5 mg PO QAM 12/27/17 12/27/17 History potassium chloride [Klor-Con 10] 20 meq PO BID 12/27/17 12/27/17 History pregabalin [Lyrica] 300 mg PO BID 12/27/17 12/27/17 History rivaroxaban [Xarelto] 20 mg PO DAILY 12/27/17 12/27/17 History simvastatin 10 mg PO QPM 12/27/17 12/27/17 History terazosin 10 mg PO HS 12/27/17 12/27/17 History Physical Exam Vital signs: Vital Signs 12/30/17 15:45 12/30/17 16:00 12/30/17 16:07 Temperature 97.5 F L Pulse Rate 90 84 Respiratory Rate 22 30 H Blood Pressure 117/65 Pulse Oximetry 97 93 L 12/30/17 17:00 12/30/17 18:00 12/30/17 19:00 Temperature Pulse Rate 88 95 H 85 Respiratory Rate Blood Pressure Pulse Oximetry 12/30/17 20:00 12/30/17 20:30 12/30/17 20:34 Temperature 97.7 F Pulse Rate 87 93 H Respiratory Rate 18 23 Blood Pressure 106/60 Pulse Oximetry 99 98 12/30/17 21:00 12/30/17 22:00 12/30/17 23:00 Temperature Pulse Rate 86 82 88 Respiratory Rate Blood Pressure Pulse Oximetry 12/30/17 23:27 12/30/17 23:29 12/31/17 00:00 Temperature Pulse Rate 89 92 H Respiratory Rate 17 20 Blood Pressure 113/64 Pulse Oximetry 97 96 12/31/17 01:00 12/31/17 02:00 12/31/17 03:00 Temperature Pulse Rate 78 86 92 H Respiratory Rate Blood Pressure Pulse Oximetry 12/31/17 04:00 12/31/17 04:10 12/31/17 04:16 Temperature Pulse Rate 90 83 Respiratory Rate 28 H 25 H Blood Pressure 111/60 Pulse Oximetry 96 96 12/31/17 05:00 12/31/17 06:00 12/31/17 07:00 Temperature Pulse Rate 82 79 91 H Respiratory Rate Blood Pressure Pulse Oximetry 12/31/17 07:27 12/31/17 08:00 12/31/17 08:49 Temperature 98.1 F Pulse Rate 89 81 Respiratory Rate 26 H 16 Blood Pressure 108/66 Pulse Oximetry 94 L 98 12/31/17 10:55 12/31/17 12:00 Temperature 98.6 F Pulse Rate 91 H 95 H Respiratory Rate 19 26 H Blood Pressure 129/71 Pulse Oximetry 97 93 L Intake & Output 12/30/17 12/31/17 12/31/17 18:59 06:59 18:59 Intake Total 740 / 740 480 / 480 Output Total 550 / 550 875 / 875 Balance 190 / 190 -395 / -395 Weight 204.4 kg 154 kg Intake: Oral 740 / 740 480 / 480 Output: Urine 550 / 550 875 / 875 Other: Date of Last Bowel Movement 12/27/17 12/27/17 # Bowel Movements 0 Narrative: GENERAL: NAD, AAOx3 SKIN: Warm and dry. HEAD: Atraumatic. Normocephalic. EYES: Pupils equal and round. No scleral icterus. No injection or drainage. ENT: No nasal bleeding or discharge. Mucous membranes pink and moist. NECK: Trachea midline. No JVD. CARDIOVASCULAR: Regular rate and rhythm. RESPIRATORY: No accessory muscle use. Decreased breath sounds bilaterally GASTROINTESTINAL: Abdomen soft, non-tender, nondistended. Hepatic and splenic margins not palpable. MUSCULOSKELETAL: Extremities 2+ pitting edema. NEUROLOGICAL: Awake and alert. No obvious cranial nerve deficits. Motor grossly within normal limits. Five out of 5 muscle strength in the arms and legs. Normal speech. PSYCHIATRIC: Appropriate mood and affect; insight and judgment normal. Results 12/30/17 04:29 12/31/17 05:30 CBC 12/30/17 Range/Units 04:29 WBC 5.4 (4.0-11.0) th/mm3 RBC 3.35 L (4.50-5.90) mil/mm3 Hgb 8.0 L (13.0-17.0) gm/dL Hct 25.8 L (39.0-51.0) % Plt Count 195 (150-450) th/mm3 Neut # (Auto) 4.7 (1.8-7.7) th/mm3 Lymph # (Auto) 0.7 L (1.0-4.8) th/mm3 Kane # (Auto) 0.1 (0.0-0.9) th/mm3 Eos # (Auto) 0.0 (0.0-0.4) th/mm3 Baso # (Auto) 0.0 (0.0-0.2) th/mm3 Comprehensive Metabolic Panel 12/30/17 12/31/17 Range/Units 04:29 05:30 Sodium 144 141 (136-145) meq/L Potassium 3.9 D 4.3 (3.5-5.1) meq/L Chloride 101 101 (98-107) meq/L Carbon Dioxide 31.3 33.4 H (21.0-32.0) meq/L BUN 35 H 54 H (7-18) mg/dL Creatinine 1.50 H 1.74 H (0.60-1.30) mg/dL Calcium 8.4 L 8.5 (8.5-10.1) mg/dL Intake and Output 12/31/17 12/31/17 12/31/17 06:59 14:59 22:59 Intake Total 480 / 480 Output Total 875 / 875 Balance -395 / -395 Intake: Oral 480 / 480 Output: Urine 875 / 875 Other: Date of Last Bowel Movement 12/27/17 # Bowel Movements 0 Weight 204.4 kg 154 kg Patient Weight 01/01/18 06:59 Weight 154 kg - Imaging and Cardiology Imaging: Impressions Chest CT 12/31/17 00:00 . CONCLUSION: 1. Moderate bibasilar parenchymal changes and small bilateral pleural effusions are suspicious for congestive failure 2. Gallstones in a benign-appearing gallbladder. 3. Marked LAD calcifications. Assessment and Plan - Assessment (1) Acute on chronic diastolic CHF (congestive heart failure) Code(s): I50.33 - Acute on chronic diastolic (congestive) heart failure Status : Acute Plan: Adequately diuresing (2) Anemia Code(s): D64.9 - Anemia, unspecified Status: Acute Plan: Per primary service (3) Pickwickian syndrome Code(s): E66.2 - Morbid (severe) obesity with alveolar hypoventilation Status : Acute Plan: Advise pulmonary consult (4) Hypokalemia Code(s): E87.6 - Hypokalemia Status: Acute Plan: Increase KCL supp (5) Morbid obesity Code(s): E66.01 - Morbid (severe) obesity due to excess calories Status: Acute - Plan 1) Acute diastolic heart failure Con't diuresis Will change to Demadex PO BID at this time and titrate for diuresis Bump in BUN/Creat, might be intravascularly dry, will have to continue to watch 2) Obesity Most likely obesity hypoventilation syndrome 3) AFib Con't on Xarelto Rates controlled
--- NOTE | 2017-12-31 15:59 | P.PN ---
Subjective Interval history: Nursing reports that the patient again was persistently asking for the BiPAP mask when they attempted to put him on nasal cannula last night. Again his saturations were in the high 90s on 4 L nasal cannula but the patient persistently asked for the BiPAP mask. His daughters are present today coming from out of town in [place]. 1 of his daughters pulls me to the side and vocalizes a concern that the patient may have no desire to live anymore. Physical Exam Vital signs: Vital Signs 12/30/17 15:45 12/30/17 16:00 12/30/17 16:07 Temperature 97.5 F L Pulse Rate 90 84 Respiratory Rate 22 30 H Blood Pressure 117/65 Pulse Oximetry 97 93 L 12/30/17 17:00 12/30/17 18:00 12/30/17 19:00 Temperature Pulse Rate 88 95 H 85 Respiratory Rate Blood Pressure Pulse Oximetry 12/30/17 20:00 12/30/17 20:30 12/30/17 20:34 Temperature 97.7 F Pulse Rate 87 93 H Respiratory Rate 18 23 Blood Pressure 106/60 Pulse Oximetry 99 98 12/30/17 21:00 12/30/17 22:00 12/30/17 23:00 Temperature Pulse Rate 86 82 88 Respiratory Rate Blood Pressure Pulse Oximetry 12/30/17 23:27 12/30/17 23:29 12/31/17 00:00 Temperature Pulse Rate 89 92 H Respiratory Rate 17 20 Blood Pressure 113/64 Pulse Oximetry 97 96 12/31/17 01:00 12/31/17 02:00 12/31/17 03:00 Temperature Pulse Rate 78 86 92 H Respiratory Rate Blood Pressure Pulse Oximetry 12/31/17 04:00 12/31/17 04:10 12/31/17 04:16 Temperature Pulse Rate 90 83 Respiratory Rate 28 H 25 H Blood Pressure 111/60 Pulse Oximetry 96 96 12/31/17 05:00 12/31/17 06:00 12/31/17 07:00 Temperature Pulse Rate 82 79 91 H Respiratory Rate Blood Pressure Pulse Oximetry 12/31/17 07:27 12/31/17 08:00 12/31/17 08:49 Temperature 98.1 F Pulse Rate 89 81 Respiratory Rate 26 H 16 Blood Pressure 108/66 Pulse Oximetry 94 L 98 12/31/17 10:55 12/31/17 12:00 Temperature 98.6 F Pulse Rate 91 H 95 H Respiratory Rate 19 26 H Blood Pressure 129/71 Pulse Oximetry 97 93 L Intake & Output 12/30/17 12/31/17 12/31/17 18:59 06:59 18:59 Intake Total 740 / 740 480 / 480 Output Total 550 / 550 875 / 875 Balance 190 / 190 -395 / -395 Weight 204.4 kg 154 kg Intake: Oral 740 / 740 480 / 480 Output: Urine 550 / 550 875 / 875 Other: Date of Last Bowel Movement 12/27/17 12/27/17 # Bowel Movements 0 Narrative: Clear lungs bilaterally, unlabored breathing, on BiPAP mask at this time Second examination: Patient is sleeping on BiPAP mask. Patient was given 1 mg of IV Ativan. Removed BiPAP mask and placed on 4 L, the patient's saturations maintained at 90 -91% on 4 L. At this time the patient would intermittently asked to be put back on the BiPAP mask every minute and then he was coached and reassured that he was doing well. He did appear drowsy after receiving the Ativan so he was allowed to nap again back on the BiPAP mask. Results - Labs CBC & Chem 7: 12/30/17 04:29 01/01/18 05:04 Laboratory Results - last 24 hr 12/30/17 12/30/17 12/30/17 17:11 18:19 20:52 Sodium Potassium Chloride Carbon Dioxide Anion Gap BUN Creatinine Estimated GFR POC Glucose 337 H 324 H Random Glucose Calcium Magnesium Procalcitonin 0.16 H 12/31/17 12/31/17 12/31/17 03:37 05:30 07:53 Sodium 141 Potassium 4.3 Chloride 101 Carbon Dioxide 33.4 H Anion Gap 7 BUN 54 H Creatinine 1.74 H Estimated GFR 38 L POC Glucose 286 H 291 H Random Glucose 256 H Calcium 8.5 Magnesium 2.5 Procalcitonin 12/31/17 12:03 Sodium Potassium Chloride Carbon Dioxide Anion Gap BUN Creatinine Estimated GFR POC Glucose 348 H Random Glucose Calcium Magnesium Procalcitonin Microbiology 12/27/17 14:30 Blood - Peripheral Aerobic Blood Culture - Preliminary No growth in 4 days 12/27/17 14:30 Blood - Peripheral Anaerobic Blood Culture - Preliminary No growth in 4 days 12/27/17 14:45 Blood - Peripheral Aerobic Blood Culture - Preliminary No growth in 4 days 12/27/17 14:45 Blood - Peripheral Anaerobic Blood Culture - Preliminary No growth in 4 days 12/30/17 12:10 Urine - Clean Catch Urine Streptococcus pneumoniae Antigen ( M - Final Presumptive negative for streptococcus pneumoniae antigen, suggesting no current or recent infection. Infection due to Streptococcus pneumoniae cannot be ruled out since the antigen present in the sample may be below the detection limit of the test. 12/30/17 12:10 Urine - Clean Catch Urine Legionella Antigen - Final Presumptive negative for Legionella pneumophila serogroup 1 antigen in urine, suggesting no recent or recurrent infection. Infection due to Legionella cannot be ruled out since other serogroups and species may cause disease, antigen may not be present in urine in early infection, and the level of antigen present in the urine may be below the detection limit of the test. - Imaging Impressions Chest CT 12/31/17 00:00 . CONCLUSION: 1. Moderate bibasilar parenchymal changes and small bilateral pleural effusions are suspicious for congestive failure 2. Gallstones in a benign-appearing gallbladder. 3. Marked LAD calcifications. Assessment and Plan - Assessment (1) Acute exacerbation of CHF (congestive heart failure) Code(s): I50.9 - Heart failure, unspecified Status: Acute (2) Pneumonia Code(s): J18.9 - Pneumonia, unspecified organism Status: Acute - Plan Mr. Rader is a pleasant 77 year old male with a history of morbid obesity, CHF, HTN who presents to the ED due to worsening dyspnea that started about 3 weeks ago. Acute respiratory failure hypoxia -acute element likely resolved and now has chronic respiratory failure requiring 4 L via nasal cannula Acute exacerbation of CHF - mixed (systolic and diastolic) Chronic mixed congestive heart failure Pulm HTN - Cardiology evaluated patient, recommended to continue Lasix. -Switched from Lasix to Demadex per cardiology -Continue Vistaril as needed anxiety -CT chest is negative for any new acute findings -procal elevated, finish Levaquin course ELSA - BMP in AM, switched to demadex per cards Possible Afib - Patient takes Xarelto. Likely from Afib. Diabetes mellitus - sliding scale insulin. Levemir discontinued. Patient had low BG levels. - If needed, consider starting low dose Levemir 5 units QHS. Morbid obesity Bilateral lower ext lymphedema Severe stasis dermatitis - Appreciate wound care for recommendations. Full code. Xarelto. Discharge Planning: Consulting psychology and palliative care to further elucidate the patient's goals of care and goals of life. Otherwise his disposition is rehab. (1) Acute exacerbation of CHF (congestive heart failure) Qualifiers: Heart failure type: unspecified Qualified Code(s): I50.9 - Heart failure, unspecified (2) Pneumonia Qualifiers: Pneumonia type: due to unspecified organism Laterality: right Lung location : lower lobe of lung Qualified Code(s): J18.1 - Lobar pneumonia, unspecified organism
[2017-12-31] MEDS: Torsemide 20 MG Tablet PO SCH (19:33)
[2017-12-31] MEDS: levoFLOXacin 750 MG Tablet PO SCH (21:59)
[2017-12-31] MEDS: MethylPREDNISolone Sod Succinate Inj 40 MG/ML Vial IV.PUSH SCH (22:02)
[2018-01-01] MEDS: Insulin NovoLOG Aspart Correctional Sugar Inj SQ SCH ×5 (03:52→20:50)
[2018-01-01 07:06] LABS: Calcium 8.8 mg/dL (8.5-10.1); Carbon Dioxide 33.7 meq/L (21.0-32.0); Magnesium 2.6 mg/dL (1.5-2.5); Potassium 4.5 meq/L (3.5-5.1)
--- NOTE | 2018-01-01 07:38 | P.PNCA ---
Subjective Interval history: No new complaints Medications and Allergies Active Medications: Active Medications Acetaminophen (Tylenol) 650 mg PO Q4H PRN PRN Reason: Headache, fever, pain 1-4 Al Hydroxide/Mg Hydroxide (Milk Of Magnesia Liq) 30 ml PO Q12H PRN PRN Reason: Mild Constipation Albuterol (Duoneb Neb (Prn)) 1 ampul NEB Q2HR NEB PRN PRN Reason: DYSPNEA Albuterol (Duoneb Neb ([place])) 1 ampul NEB Q4HR NEB [facility] Last Admin: 01/01/18 04:11 Dose: 1 ampul Bisacodyl (Dulcolax Supp) 10 mg RECTAL DAILY PRN PRN Reason: SEVERE CONSITIPATION Dextrose (D50w Vial) 50 ml IV.PUSH UNSCH PRN PRN Reason: PER HYPOGLYCEMIA PROTOCOL Glucagon (Glucagon Inj) 1 mg OTHER PRN PRN PRN Reason: for Hypoglycemia Protocol Hydroxyzine Pamoate (Vistaril) 25 mg PO Q8H PRN PRN Reason: ANXIETY Insulin Aspart (Novolog Insulin Correctional Sugar Inj) 0 unit SQ ACHS AND 3AM [facility]; Protocol Last Admin: 01/01/18 03:52 Dose: 7 unit Lactulose (Lactulose Liq) 30 ml PO DAILY PRN PRN Reason: SEVERE CONSITIPATION Lorazepam (Ativan) 0.5 mg PO Q8H PRN PRN Reason: breakthru anxiety Lorazepam (Ativan Inj) 2 mg IV.PUSH ONCE PRN PRN Reason: ANXIETY Last Admin: 12/31/17 18:35 Dose: 1 mg Methylprednisolone Sodium Succinate (Solumedrol Inj) 40 mg IV.PUSH Q12HR [facility] Last Admin: 12/31/17 22:02 Dose: 40 mg Ondansetron HCl (Zofran Inj) 4 mg IV.PUSH Q6H PRN PRN Reason: NAUSEA OR VOMITING Potassium Chloride (Klor-Con 10) 20 meq PO QID [facility] Last Admin: 12/31/17 21:59 Dose: 20 meq Pravastatin Sodium (Pravachol) 20 mg PO QPM [facility] Last Admin: 12/31/17 18:36 Dose: 20 mg Pregabalin (Lyrica) 300 mg PO BID [facility] Last Admin: 12/31/17 21:59 Dose: 300 mg Rivaroxaban (Xarelto) 15 mg PO DAILY [facility] Sennosides (Senokot) 17.2 mg PO Q12H PRN PRN Reason: Moderate Constipation Torsemide (Demadex) 20 mg PO BID@0900,1800 [facility] Last Admin: 12/31/17 19:33 Dose: 20 mg Allergies Allergy/AdvReac Type Severity Reaction Status Date / Time No Known Allergies Allergy Unverified 12/27/17 11:57 Home Medications Medication Instructions Recorded Confirmed Type bumetanide 1 mg PO BID 12/27/17 12/27/17 History febuxostat [Uloric] 40 mg PO DAILY 12/27/17 12/27/17 History insulin aspart U-100 [Novolog 36 unit SUB-Q TIDAC 12/27/17 12/27/17 History Flexpen U-100 Insulin] insulin degludec [Tresiba 76 unit SUB-Q BID 12/27/17 12/27/17 History FlexTouch U-100] linaclotide [Linzess] 290 mcg PO DAILY 12/27/17 12/27/17 History metolazone 5 mg PO QAM 12/27/17 12/27/17 History potassium chloride [Klor-Con 10] 20 meq PO BID 12/27/17 12/27/17 History pregabalin [Lyrica] 300 mg PO BID 12/27/17 12/27/17 History rivaroxaban [Xarelto] 20 mg PO DAILY 12/27/17 12/27/17 History simvastatin 10 mg PO QPM 12/27/17 12/27/17 History terazosin 10 mg PO HS 12/27/17 12/27/17 History Physical Exam Vital signs: Vital Signs 12/31/17 08:00 12/31/17 08:49 12/31/17 09:00 Temperature 98.1 F Pulse Rate 86 92 H Respiratory Rate 16 Blood Pressure 108/66 Pulse Oximetry 94 L 98 12/31/17 10:00 12/31/17 10:55 12/31/17 12:00 Temperature 98.6 F Pulse Rate 88 91 H 94 H Respiratory Rate 19 26 H Blood Pressure 129/71 Pulse Oximetry 97 93 L 12/31/17 13:00 12/31/17 14:00 12/31/17 16:00 Temperature 98.0 F Pulse Rate 94 H 92 H 84 Respiratory Rate 26 H Blood Pressure 114/75 Pulse Oximetry 96 12/31/17 16:02 12/31/17 17:00 12/31/17 18:00 Temperature Pulse Rate 94 H 94 H 92 H Respiratory Rate 33 H Blood Pressure Pulse Oximetry 12/31/17 19:00 12/31/17 20:00 12/31/17 20:37 Temperature 97 F L Pulse Rate 90 94 H 88 Respiratory Rate 24 25 H Blood Pressure 118/68 Pulse Oximetry 97 12/31/17 20:39 12/31/17 21:00 12/31/17 22:00 Temperature Pulse Rate 96 H 88 Respiratory Rate Blood Pressure Pulse Oximetry 98 12/31/17 23:00 12/31/17 23:37 12/31/17 23:41 Temperature Pulse Rate 91 H 90 Respiratory Rate 25 H Blood Pressure Pulse Oximetry 95 01/01/18 00:00 01/01/18 01:00 01/01/18 02:00 Temperature Pulse Rate 88 82 76 Respiratory Rate 24 Blood Pressure 121/70 Pulse Oximetry 98 01/01/18 03:00 01/01/18 04:00 01/01/18 04:12 Temperature Pulse Rate 81 88 88 Respiratory Rate 24 24 Blood Pressure 119/70 Pulse Oximetry 98 100 01/01/18 05:00 01/01/18 06:00 Temperature Pulse Rate 84 96 H Respiratory Rate Blood Pressure Pulse Oximetry Intake & Output 12/31/17 01/01/18 01/01/18 18:59 06:59 18:59 Intake Total 620 / 620 480 / 480 Output Total 500 / 500 700 / 700 Balance 120 / 120 -220 / -220 Weight 154 kg 154 kg Intake: Oral 620 / 620 480 / 480 Output: Urine 500 / 500 700 / 700 Other: Date of Last Bowel Movement 12/27/17 12/27/17 # Bowel Movements 0 Narrative: Alert, currently on BiPap No JVD discernible Chest: diminished BS CV S1S2 RRR, distant Abd severely obese Ext. Wrinkled skin LE. Not any pitting. Chronic stasis changes Results 12/30/17 04:29 01/01/18 05:04 Comprehensive Metabolic Panel 12/31/17 01/01/18 Range/Units 05:30 05:04 Sodium 141 140 (136-145) meq/L Potassium 4.3 4.5 (3.5-5.1) meq/L Chloride 101 101 (98-107) meq/L Carbon Dioxide 33.4 H 33.7 H (21.0-32.0) meq/L BUN 54 H 62 H (7-18) mg/dL Creatinine 1.74 H 1.74 H (0.60-1.30) mg/dL Calcium 8.5 8.8 (8.5-10.1) mg/dL Intake and Output 12/31/17 01/01/18 01/01/18 22:59 06:59 14:59 Intake Total 620 / 620 480 / 480 Output Total 500 / 500 700 / 700 Balance 120 / 120 -220 / -220 Intake: Oral 620 / 620 480 / 480 Output: Urine 500 / 500 700 / 700 Other: Date of Last Bowel Movement 12/27/17 12/27/17 # Bowel Movements 0 Weight 154 kg - Imaging and Cardiology Imaging: Impressions Chest CT 12/31/17 00:00 . CONCLUSION: 1. Moderate bibasilar parenchymal changes and small bilateral pleural effusions are suspicious for congestive failure 2. Gallstones in a benign-appearing gallbladder. 3. Marked LAD calcifications. Assessment and Plan - Assessment (1) Acute on chronic diastolic CHF (congestive heart failure) Code(s): I50.33 - Acute on chronic diastolic (congestive) heart failure Status : Acute Plan: Adequately diuresing (2) Anemia Code(s): D64.9 - Anemia, unspecified Status: Acute Plan: Per primary service (3) Pickwickian syndrome Code(s): E66.2 - Morbid (severe) obesity with alveolar hypoventilation Status : Acute Plan: Advise pulmonary consult (4) Hypokalemia Code(s): E87.6 - Hypokalemia Status: Acute Plan: Increase KCL supp (5) Morbid obesity Code(s): E66.01 - Morbid (severe) obesity due to excess calories Status: Acute - Plan 1) Acute diastolic heart failure. He's got about as much benefit from diuresis he is going to get Con't Demadex PO BID 2) Obesity Most likely obesity hypoventilation syndrome 3) AFib Con't on Xarelto Rates controlled
[2018-01-01] MEDS: Rivaroxaban 15 MG Tablet PO SCH (08:47)
[2018-01-01] MEDS: LORazepam 0.5 MG Tablet PO PRN ×2 (08:47→20:42)
[2018-01-01] MEDS: MethylPREDNISolone Sod Succinate Inj 40 MG/ML Vial IV.PUSH SCH ×2 (08:48→20:44)
[2018-01-01] MEDS: Torsemide 20 MG Tablet PO SCH ×2 (08:48→17:50)
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
--- NOTE | 2018-01-01 16:31 | P.PN ---
Subjective Interval history: Nursing denies any deterioration since last night. Daughters were not able to make it in time to witness physical therapy session. Patient himself says he is doing good. Says he wants to work with rehab. Daughters expressed concern that his attitude her mood could be affecting his motivation and goals of care. Physical Exam Vital signs: Vital Signs 12/31/17 17:00 12/31/17 18:00 12/31/17 19:00 Temperature Pulse Rate 94 H 92 H 90 Respiratory Rate Blood Pressure Pulse Oximetry 12/31/17 20:00 12/31/17 20:37 12/31/17 20:39 Temperature 97 F L Pulse Rate 94 H 88 Respiratory Rate 24 25 H Blood Pressure 118/68 Pulse Oximetry 97 98 12/31/17 21:00 12/31/17 22:00 12/31/17 23:00 Temperature Pulse Rate 96 H 88 91 H Respiratory Rate Blood Pressure Pulse Oximetry 12/31/17 23:37 12/31/17 23:41 01/01/18 00:00 Temperature Pulse Rate 90 88 Respiratory Rate 25 H 24 Blood Pressure 121/70 Pulse Oximetry 95 98 01/01/18 01:00 01/01/18 02:00 01/01/18 03:00 Temperature Pulse Rate 82 76 81 Respiratory Rate Blood Pressure Pulse Oximetry 01/01/18 04:00 01/01/18 04:12 01/01/18 05:00 Temperature Pulse Rate 88 88 84 Respiratory Rate 24 24 Blood Pressure 119/70 Pulse Oximetry 98 100 01/01/18 06:00 01/01/18 08:00 01/01/18 08:51 Temperature 98.1 F Pulse Rate 96 H 84 83 Respiratory Rate 23 24 Blood Pressure 104/62 Pulse Oximetry 96 01/01/18 10:00 01/01/18 11:00 01/01/18 12:00 Temperature 97.5 F L Pulse Rate 84 88 Respiratory Rate 22 Blood Pressure 124/73 Pulse Oximetry 98 98 01/01/18 12:18 01/01/18 13:00 01/01/18 14:00 Temperature Pulse Rate 87 90 78 Respiratory Rate 22 Blood Pressure Pulse Oximetry 01/01/18 15:00 01/01/18 16:00 Temperature 98.0 F Pulse Rate 81 Respiratory Rate 26 H Blood Pressure 120/57 L Pulse Oximetry 98 98 Intake & Output 12/31/17 01/01/18 01/01/18 18:59 06:59 18:59 Intake Total 620 / 620 480 / 480 Output Total 500 / 500 700 / 700 Balance 120 / 120 -220 / -220 Weight 154 kg 154 kg Intake: Oral 620 / 620 480 / 480 Output: Urine 500 / 500 700 / 700 Other: Date of Last Bowel Movement 12/27/17 12/27/17 12/27/17 # Bowel Movements 0 Narrative: Clear lungs bilaterally On BiPAP Easily awoken Mod LE edema Results - Labs CBC & Chem 7: 12/30/17 04:29 01/01/18 05:04 Laboratory Results - last 24 hr 12/31/17 12/31/17 01/01/18 18:02 20:51 03:29 Sodium Potassium Chloride Carbon Dioxide Anion Gap BUN Creatinine Estimated GFR POC Glucose 351 H 354 H 317 H Random Glucose Calcium Magnesium 01/01/18 01/01/18 01/01/18 05:04 08:33 12:24 Sodium 140 Potassium 4.5 Chloride 101 Carbon Dioxide 33.7 H Anion Gap 5 BUN 62 H Creatinine 1.74 H Estimated GFR 38 L POC Glucose 295 H 335 H Random Glucose 282 H Calcium 8.8 Magnesium 2.6 H Microbiology 12/27/17 14:30 Blood - Peripheral Aerobic Blood Culture - Final No growth in 5 days 12/27/17 14:30 Blood - Peripheral Anaerobic Blood Culture - Final No growth in 5 days 12/27/17 14:45 Blood - Peripheral Aerobic Blood Culture - Final No growth in 5 days 12/27/17 14:45 Blood - Peripheral Anaerobic Blood Culture - Final No growth in 5 days Assessment and Plan - Assessment (1) Acute exacerbation of CHF (congestive heart failure) Code(s): I50.9 - Heart failure, unspecified Status: Acute (2) Pneumonia Code(s): J18.9 - Pneumonia, unspecified organism Status: Acute - Plan Mr. Rader is a pleasant 77 year old male with a history of morbid obesity, CHF, HTN who presents to the ED due to worsening dyspnea that started about 3 weeks ago. Acute respiratory failure hypoxia -acute element likely resolved and now has chronic respiratory failure requiring 4 L via nasal cannula Acute exacerbation of CHF - mixed (systolic and diastolic) Chronic mixed congestive heart failure Pulm HTN - Cardiology evaluated patient, recommended to continue Lasix. -Switched from Lasix to Demadex per cardiology -Continue Vistaril as needed anxiety -CT chest is negative for any new acute findings -procal elevated, finish Levaquin course ELSA - BMP in AM, will increase demadex per cards Possible Afib - Patient takes Xarelto. Likely from Afib. Diabetes mellitus - sliding scale insulin. Levemir discontinued. Patient had low BG levels. - If needed, consider starting low dose Levemir 5 units QHS. Morbid obesity Bilateral lower ext lymphedema Severe stasis dermatitis - Appreciate wound care for recommendations. Full code. Xarelto. Discharge Planning: Consulting psychology and palliative care to further elucidate the patient's goals of care and goals of life. Otherwise his disposition is rehab. (1) Acute exacerbation of CHF (congestive heart failure) Qualifiers: Heart failure type: unspecified Qualified Code(s): I50.9 - Heart failure, unspecified (2) Pneumonia Qualifiers: Pneumonia type: due to unspecified organism Laterality: right Lung location : lower lobe of lung Qualified Code(s): J18.1 - Lobar pneumonia, unspecified organism
--- NOTE | 2018-01-01 18:19 | P.PN ---
Subjective Interval history: Alert and on a BiPAP mask . he is feeling better. FIO2 at 40 % output was good. Physical Exam Vital signs: Vital Signs 12/31/17 19:00 12/31/17 20:00 12/31/17 20:37 Temperature 97 F L Pulse Rate 90 94 H 88 Respiratory Rate 24 25 H Blood Pressure 118/68 Pulse Oximetry 97 12/31/17 20:39 12/31/17 21:00 12/31/17 22:00 Temperature Pulse Rate 96 H 88 Respiratory Rate Blood Pressure Pulse Oximetry 98 12/31/17 23:00 12/31/17 23:37 12/31/17 23:41 Temperature Pulse Rate 91 H 90 Respiratory Rate 25 H Blood Pressure Pulse Oximetry 95 01/01/18 00:00 01/01/18 01:00 01/01/18 02:00 Temperature Pulse Rate 88 82 76 Respiratory Rate 24 Blood Pressure 121/70 Pulse Oximetry 98 01/01/18 03:00 01/01/18 04:00 01/01/18 04:12 Temperature Pulse Rate 81 88 88 Respiratory Rate 24 24 Blood Pressure 119/70 Pulse Oximetry 98 100 01/01/18 05:00 01/01/18 06:00 01/01/18 08:00 Temperature 98.1 F Pulse Rate 84 96 H 84 Respiratory Rate 23 Blood Pressure 104/62 Pulse Oximetry 96 01/01/18 08:51 01/01/18 10:00 01/01/18 11:00 Temperature Pulse Rate 83 84 Respiratory Rate 24 Blood Pressure Pulse Oximetry 98 01/01/18 12:00 01/01/18 12:18 01/01/18 13:00 Temperature 97.5 F L Pulse Rate 88 87 90 Respiratory Rate 22 22 Blood Pressure 124/73 Pulse Oximetry 98 01/01/18 14:00 01/01/18 15:00 01/01/18 16:00 Temperature 98.0 F Pulse Rate 78 81 Respiratory Rate 26 H Blood Pressure 120/57 L Pulse Oximetry 98 98 01/01/18 16:36 Temperature Pulse Rate 93 H Respiratory Rate 27 H Blood Pressure Pulse Oximetry Intake & Output 12/31/17 01/01/18 01/01/18 18:59 06:59 18:59 Intake Total 620 / 620 480 / 480 Output Total 500 / 500 700 / 700 Balance 120 / 120 -220 / -220 Weight 154 kg 154 kg Intake: Oral 620 / 620 480 / 480 Output: Urine 500 / 500 700 / 700 Other: Date of Last Bowel Movement 12/27/17 12/27/17 12/27/17 # Bowel Movements 0 Narrative: GENERAL: Obese elderly W/M alert and dyspneic. SKIN: Warm and dry. HEAD: Normocephalic. EYES: No scleral icterus. No injection or drainage. NECK: Supple, trachea midline. No JVD or lymphadenopathy. CARDIOVASCULAR: Regular rate and rhythm without murmurs, gallops, or rubs. RESPIRATORY: Breath sounds equal bilaterally.Basal crackles heard. No accessory muscle use. GASTROINTESTINAL: Abdomen soft, non-tender, nondistended. MUSCULOSKELETAL: No cyanosis, but has 1 + edema. BACK: Nontender without obvious deformity. No CVA tenderness. Neuro; No deficits. Results - Labs CBC & Chem 7: 12/30/17 04:29 01/01/18 05:04 Laboratory Results - last 24 hr 12/31/17 01/01/18 01/01/18 20:51 03:29 05:04 Sodium 140 Potassium 4.5 Chloride 101 Carbon Dioxide 33.7 H Anion Gap 5 BUN 62 H Creatinine 1.74 H Estimated GFR 38 L POC Glucose 354 H 317 H Random Glucose 282 H Calcium 8.8 Magnesium 2.6 H 01/01/18 01/01/18 01/01/18 08:33 12:24 17:21 Sodium Potassium Chloride Carbon Dioxide Anion Gap BUN Creatinine Estimated GFR POC Glucose 295 H 335 H 301 H Random Glucose Calcium Magnesium Microbiology 12/27/17 14:30 Blood - Peripheral Aerobic Blood Culture - Final No growth in 5 days 12/27/17 14:30 Blood - Peripheral Anaerobic Blood Culture - Final No growth in 5 days 12/27/17 14:45 Blood - Peripheral Aerobic Blood Culture - Final No growth in 5 days 12/27/17 14:45 Blood - Peripheral Anaerobic Blood Culture - Final No growth in 5 days Assessment and Plan - Plan 1. Acute hypoxemic and hypercapnic respiratory insufficiency. 2. Diffuse bilateral pulmonary infiltrates. Ddx: pulmonary edema versus pneumonia. 3. Morbid obesity and obstructive sleep apnea. 4. Leukocytosis. 5. Acute kidney injury. 6. Anemia. 7. ? COPD. 8. Hypertension. 9. Diabetes mellitus. Plan Continue with BiPAP 15/5 CM FIO2 40 % and wean to Ventimask Bronchodilators( DuoNeb)QID Taper Solu-Medrol 40 mg IV every 8 hours. Continue with BiPAP p.r.n. and nocturnally IS at bedside q4h Continue with abx(Levaquin) Follow up on blood Cultures. Nasal washing screening for influenza is negative. Streptococcus pneumoniae and Legionella urinary antigen negative Cont On Diuretics- Lasix 40mg BID. Monitor renal function and BMP ,CBC in am GI and DVT prophylaxis. Cont on Xarelto 20 mg daily.
[2018-01-02] MEDS: Insulin NovoLOG Aspart Correctional Sugar Inj SQ SCH ×5 (03:05→21:00)
[2018-01-02 08:40] LABS: Calcium 8.6 mg/dL (8.5-10.1); Carbon Dioxide 37.3 meq/L (21.0-32.0); Magnesium 2.7 mg/dL (1.5-2.5); Potassium 4.4 meq/L (3.5-5.1)
[2018-01-02] MEDS: MethylPREDNISolone Sod Succinate Inj 40 MG/ML Vial IV.PUSH SCH ×2 (09:33→20:47)
[2018-01-02] MEDS: Rivaroxaban 15 MG Tablet PO SCH (09:33)
[2018-01-02] MEDS: Torsemide 20 MG Tablet PO SCH ×2 (09:38→17:55)
[2018-01-02] MEDS: LORazepam 0.5 MG Tablet PO PRN ×2 (11:19→18:32)
--- NOTE | 2018-01-02 12:56 | P.PN ---
Subjective Interval history: Better today and keeps Mask Off. Sat 92 on RA. Output was good. No cough. Physical Exam Vital signs: Vital Signs 01/01/18 13:00 01/01/18 14:00 01/01/18 15:00 Temperature Pulse Rate 90 78 79 Respiratory Rate Blood Pressure Pulse Oximetry 98 01/01/18 16:00 01/01/18 16:36 01/01/18 17:00 Temperature 98.0 F Pulse Rate 78 93 H 82 Respiratory Rate 26 H 27 H Blood Pressure 120/57 L Pulse Oximetry 98 01/01/18 18:00 01/01/18 19:00 01/01/18 20:00 Temperature 97.7 F Pulse Rate 84 83 83 Respiratory Rate 24 Blood Pressure 119/71 Pulse Oximetry 97 01/01/18 20:44 01/01/18 20:47 01/01/18 21:00 Temperature Pulse Rate 87 88 Respiratory Rate 19 Blood Pressure Pulse Oximetry 96 96 01/01/18 22:00 01/01/18 23:00 01/01/18 23:17 Temperature Pulse Rate 86 84 Respiratory Rate Blood Pressure Pulse Oximetry 95 95 01/01/18 23:19 01/02/18 00:00 01/02/18 01:00 Temperature 97.2 F L Pulse Rate 81 86 82 Respiratory Rate 19 25 H Blood Pressure 120/75 Pulse Oximetry 95 01/02/18 02:00 01/02/18 03:00 01/02/18 03:15 Temperature Pulse Rate 78 88 87 Respiratory Rate 23 Blood Pressure Pulse Oximetry 99 98 01/02/18 04:00 01/02/18 05:00 01/02/18 06:00 Temperature 96.8 F L Pulse Rate 88 90 81 Respiratory Rate 23 Blood Pressure 120/67 Pulse Oximetry 99 01/02/18 07:00 01/02/18 08:00 01/02/18 08:58 Temperature 97.1 F L Pulse Rate 86 86 90 Respiratory Rate 17 22 Blood Pressure 115/65 Pulse Oximetry 95 95 01/02/18 09:00 01/02/18 09:05 01/02/18 10:00 Temperature Pulse Rate 70 90 Respiratory Rate Blood Pressure Pulse Oximetry 95 01/02/18 11:00 01/02/18 11:19 01/02/18 11:21 Temperature 96.9 F L Pulse Rate 91 H 81 83 Respiratory Rate 22 17 Blood Pressure 118/86 Pulse Oximetry 95 100 100 01/02/18 12:00 Temperature Pulse Rate 90 Respiratory Rate Blood Pressure Pulse Oximetry Intake & Output 01/01/18 01/02/18 01/02/18 18:59 06:59 18:59 Intake Total 640 / 640 240 / 240 Output Total 700 / 700 1425 / 1425 Balance -60 / -60 -1185 / -1185 Weight 154 kg Intake: Oral 640 / 640 240 / 240 Output: Urine 700 / 700 1425 / 1425 Other: Date of Last Bowel Movement 12/27/17 12/27/17 # Bowel Movements 0 Narrative: GENERAL: Obese elderly W/M alert and mildly dyspneic. SKIN: Warm and dry. HEAD: Normocephalic. EYES: No scleral icterus. No injection or drainage. NECK: Supple, trachea midline. No JVD or lymphadenopathy. CARDIOVASCULAR: Irregular rate and rhythm without murmurs, gallops, or rubs. RESPIRATORY: Breath sounds equal bilaterally.Basal crackles heard. No accessory muscle use. GASTROINTESTINAL: Abdomen soft, non-tender, nondistended. MUSCULOSKELETAL: No cyanosis, but has 1 + edema. BACK: Nontender without obvious deformity. No CVA tenderness. Neuro; No deficits. Results - Labs CBC & Chem 7: 12/30/17 04:29 01/02/18 07:54 Laboratory Results - last 24 hr 01/01/18 01/01/18 01/02/18 17:21 20:37 02:57 Sodium Potassium Chloride Carbon Dioxide Anion Gap BUN Creatinine Estimated GFR POC Glucose 301 H 342 H 320 H Random Glucose Calcium Magnesium 01/02/18 01/02/18 01/02/18 07:54 07:54 08:43 Sodium Cancelled 143 Potassium Cancelled 4.4 Chloride Cancelled 102 Carbon Dioxide Cancelled 37.3 H Anion Gap Cancelled 4 L BUN Cancelled 64 H Creatinine Cancelled 1.68 H Estimated GFR Cancelled 40 L POC Glucose 304 H Random Glucose Cancelled 284 H Calcium Cancelled 8.6 Magnesium 2.7 H 01/02/18 11:06 Sodium Potassium Chloride Carbon Dioxide Anion Gap BUN Creatinine Estimated GFR POC Glucose 359 H Random Glucose Calcium Magnesium Microbiology 12/27/17 14:30 Blood - Peripheral Aerobic Blood Culture - Final No growth in 5 days 12/27/17 14:30 Blood - Peripheral Anaerobic Blood Culture - Final No growth in 5 days 12/27/17 14:45 Blood - Peripheral Aerobic Blood Culture - Final No growth in 5 days 12/27/17 14:45 Blood - Peripheral Anaerobic Blood Culture - Final No growth in 5 days Assessment and Plan - Plan 1. Acute hypoxemic and hypercapnic respiratory insufficiency. 2. Diffuse bilateral pulmonary infiltrates. Ddx: pulmonary edema versus pneumonia. 3. Morbid obesity and obstructive sleep apnea. 4. Leukocytosis. 5. Acute kidney injury. 6. Anemia. 7. ? COPD. 8. Hypertension. 9. Diabetes mellitus. Plan Continue with BiPAP 15/5 CM FIO2 30 % at HS and wean to N/C days at 4L. Bronchodilators( DuoNeb)QID Taper Solu-Medrol 40 mg IV every 12 hours. IS at bedside q4h Continue with abx Cont On Diuretics- Torsemide 20mg BID. Monitor renal function and BMP ,CBC in am GI and DVT prophylaxis. Cont on Xarelto 20 mg daily.
--- NOTE | 2018-01-02 14:25 | XR ---
EXAM DATE: 01/02/2018 12:00 AM EDT AGE/SEX: 77 years / Male INDICATIONS: Pneumonia. Patient complains of shortness of breath. CLINICAL DATA: This is the patient's subsequent encounter. Patient reports that signs and symptoms h ave been present for 1 week and indicates a pain score of 0/10. MEDICAL/SURGICAL HISTORY: . Congestive heart failure. Chronic obstructive pulmonary disease. Di abetes None. COMPARISON: [facility] [place], CHEST 1V SINGLE AP, 12/29/2017. . FINDINGS: There has been some mild improvement in the bilateral pulmonary infiltrates compared to the prior exa mination. There continues to be some parenchymal changes in the right lung base which are about the s karis. The heart size remains enlarged but stable. The bony structures are stable. No pneumothorax. CONCLUSION: Mild improvement in the bilateral pulmonary infiltrates compared to the prior examination. Electronically signed by: Valentin Vega MD 01/02/2018 2:23 PM EDT
--- NOTE | 2018-01-02 14:35 | P.NPEVAL ---
Patient History - Record/History Review Reason for Referral: The patient is a 77 year old right handed male who was admitted to [facility] on 12/27/2017 with SOB for 3 days and eventually diagnosed with exacerbation of CHF. He has a past medical history of CHF, COPD, HTN and DM. He is originally from [place], moving here to be with his mother many years ago. He is x 1, and has two children, both of whom live in [place]. 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 His daughters reportedly are concerned about his mental health in light of his multiple medical issues. He is referred for baseline neurobehavioral status examination to assess cognitive, behavioral and emotional aspects of the injury and to provide treatment recommendations. [facility] - History History Provided By: Patient - Medical History Medical History: Medical History (Last Reviewed 01/02/18 @ 07:54 by Mikel Saleh, PT) Afib CHF (congestive heart failure) COPD (chronic obstructive pulmonary disease) HTN (hypertension) Type II diabetes mellitus - Tobacco History Smoking Status: Former smoker - Alcohol History How Often Do You Have a Drink Containing Alcohol: Monthly or less - Substance Use History Substance History: No History of Abuse - Travel History Recent Travel in the [place] Within the Last 8 Weeks: No Recent Travel Out of the Country Within the Last 8 Weeks: No - Immunization History Tetanus Immunization: Unsure Hx Influenza Vaccine This Season: No Medications Active Medications Acetaminophen (Tylenol) 650 mg PO Q4H PRN PRN Reason: Headache, fever, pain 1-4 Al Hydroxide/Mg Hydroxide (Milk Of Ester Stark) 30 ml PO Q12H PRN PRN Reason: Mild Constipation Last Admin: 01/02/18 03:05 Dose: 30 ml Albuterol (Duoneb Neb (Prn)) 1 ampul NEB Q2HR NEB PRN PRN Reason: DYSPNEA Bisacodyl (Dulcolax Supp) 10 mg RECTAL DAILY PRN PRN Reason: SEVERE CONSITIPATION Dextrose (D50w Vial) 50 ml IV.PUSH UNSCH PRN PRN Reason: PER HYPOGLYCEMIA PROTOCOL Glucagon (Glucagon Inj) 1 mg OTHER PRN PRN PRN Reason: for Hypoglycemia Protocol Hydroxyzine Pamoate (Vistaril) 25 mg PO Q8H PRN PRN Reason: ANXIETY Insulin Aspart (Novolog Insulin Correctional Sugar Inj) 0 unit SQ ACHS AND 3AM XIOMARA; Protocol Last Admin: 01/02/18 12:20 Dose: Not Given Lactulose (Lactulose Liq) 30 ml PO DAILY PRN PRN Reason: SEVERE CONSITIPATION Lorazepam (Ativan) 0.5 mg PO Q8H PRN PRN Reason: breakthru anxiety Last Admin: 01/02/18 11:19 Dose: 0.5 mg Lorazepam (Ativan Inj) 2 mg IV.PUSH ONCE PRN PRN Reason: ANXIETY Last Admin: 12/31/17 18:35 Dose: 1 mg Methylprednisolone Sodium Succinate (Solumedrol Inj) 40 mg IV.PUSH Q12HR [facility] Last Admin: 01/02/18 09:33 Dose: 40 mg Ondansetron HCl (Zofran Inj) 4 mg IV.PUSH Q6H PRN PRN Reason: NAUSEA OR VOMITING Potassium Chloride (Klor-Con 10) 20 meq PO QID [facility] Last Admin: 01/02/18 12:08 Dose: 20 meq Pravastatin Sodium (Pravachol) 20 mg PO QPM [facility] Last Admin: 01/01/18 17:53 Dose: 20 mg Pregabalin (Lyrica) 300 mg PO BID [facility] Last Admin: 01/02/18 09:33 Dose: 300 mg Rivaroxaban (Xarelto) 15 mg PO DAILY [facility] Last Admin: 01/02/18 09:33 Dose: 15 mg Sennosides (Senokot) 17.2 mg PO Q12H PRN PRN Reason: Moderate Constipation Torsemide (Demadex) 20 mg PO BID@0900,1800 [facility] Last Admin: 01/02/18 09:38 Dose: 20 mg Mental Status Assessment - Mental Status Orientation: oriented to: Self, Place, Time, Situation Mental Status: WFL: Language/interactions, Attention, Learning/memory, Problem- solving, Variable: Thought processing Absent: Hallucinations, Delusions Adjustment/Coping Assessment - Adjustment/Coping Adjustment/Coping: None: Awareness, Insight - Observation In terms of emotional functioning, the patient demonstrated challenges. This patient demonstrated no signs of agitation, impulsivity or disinhibition, nor was there remarkable evidence of a formal thought disorder or psychosis. There was some evidence of depression, not necessarily anxiety. Thought content was free from suicidal, homicidal or paranoid ideation, and thought processes were logical and goal-directed. The patients mood was euthymic but resigned to his multiple medical concerns, and his affect was stable yet worrisome. The patient appears to possess adequate insight and awareness into their situation and within the limits of this brief evaluation, adequate judgment. - Goals/Team Members LTG Status: Deferred STG Status: Deferred Team Members: Neuropsychologist Behavior - Behavior Treatment Engagement: Average - Observation Behaviorally, the patient demonstrated no signs of agitation, impulsivity or disinhibition. There was no remarkable evidence of a formal thought disorder or psychosis. - Goals LTG Status: Deferred STG Status: Deferred - Team Members Team Members: Neuropsychologist Diagnosis/Discharge Plan - Diagnosis (1) Adjustment disorder with depressed mood Status: Acute Impression: This is a 77 year old male with multiple medical comorbidities recently admitted for exacerbation of CHF. Neurobehavioral status exam reveals an individual with good understanding of his medical issues, and appropriate concern regarding the physical challenges he has with his recovery. He voices a desire to transition to rehabilitation to increase his strength and endurance. Maximizing Acute Care Outcome: It is recommended that the patient be monitored for emergent emotional difficulties as the medical condition evolves. At this point in the recovery process, the patient demonstrate adequate decision making capacity. In my opinion, he is able to understand a situation and its likely consequences, and he is able to manipulate information rationally. Cognitive capacity will be assessed throughout the recovery process. - Discharge Planning Anticipated Problems: Ongoing areas of concern will include depressive affect as it relates to his multiple medical challenges, which is expected to improve with time and treatment. To assist, I will follow the patient throughout his hospital stay to provide psychological support and encouragement in order to maximize his therapeutic outcome. Treatment Plan: This clinician will continue to follow with you throughout the course of this patients acute care treatment, and I will be available to meet with the patient s family/support system to facilitate their understanding and the ongoing care of their family member. The goals of neuropsychological intervention shall be both educational and supportive to the family/support system as is deemed clinically appropriate. Thank you for the opportunity to assist in this patients care. Binh Troy, Ph.D., ABPP Board Certified in Clinical Neuropsychology [place] [employer] [place] Licensed Psychologist #[id number]
--- NOTE | 2018-01-02 18:08 | P.PN ---
Subjective Interval history: Spoke with neuropschology today, appreciate input. No acute events overnight reported. Pt apparently is on 2 L at this time. Pt Looking forward to discharge to SNF. Physical Exam Vital signs: Vital Signs 01/01/18 19:00 01/01/18 20:00 01/01/18 20:44 Temperature 97.7 F Pulse Rate 83 83 Respiratory Rate 24 Blood Pressure 119/71 Pulse Oximetry 97 96 01/01/18 20:47 01/01/18 21:00 01/01/18 22:00 Temperature Pulse Rate 87 88 86 Respiratory Rate 19 Blood Pressure Pulse Oximetry 96 01/01/18 23:00 01/01/18 23:17 01/01/18 23:19 Temperature Pulse Rate 84 81 Respiratory Rate 19 Blood Pressure Pulse Oximetry 95 95 01/02/18 00:00 01/02/18 01:00 01/02/18 02:00 Temperature 97.2 F L Pulse Rate 86 82 78 Respiratory Rate 25 H Blood Pressure 120/75 Pulse Oximetry 95 01/02/18 03:00 01/02/18 03:15 01/02/18 04:00 Temperature 96.8 F L Pulse Rate 88 87 88 Respiratory Rate 23 23 Blood Pressure 120/67 Pulse Oximetry 99 98 99 01/02/18 05:00 01/02/18 06:00 01/02/18 07:00 Temperature Pulse Rate 90 81 86 Respiratory Rate Blood Pressure Pulse Oximetry 95 01/02/18 08:00 01/02/18 08:58 01/02/18 09:00 Temperature 97.1 F L Pulse Rate 86 90 70 Respiratory Rate 17 22 Blood Pressure 115/65 Pulse Oximetry 95 01/02/18 09:05 01/02/18 10:00 01/02/18 11:00 Temperature Pulse Rate 90 91 H Respiratory Rate Blood Pressure Pulse Oximetry 95 95 01/02/18 11:19 01/02/18 11:21 01/02/18 12:00 Temperature 96.9 F L Pulse Rate 81 83 90 Respiratory Rate 22 17 Blood Pressure 118/86 Pulse Oximetry 100 100 01/02/18 13:00 01/02/18 14:00 01/02/18 15:00 Temperature Pulse Rate 90 92 H Respiratory Rate Blood Pressure Pulse Oximetry 95 01/02/18 16:00 Temperature 97.6 F Pulse Rate 93 H Respiratory Rate 20 Blood Pressure 116/70 Pulse Oximetry 97 Intake & Output 01/01/18 01/02/18 01/02/18 18:59 06:59 18:59 Intake Total 640 / 640 240 / 240 Output Total 700 / 700 1425 / 1425 Balance -60 / -60 -1185 / -1185 Weight 154 kg Intake: Oral 640 / 640 240 / 240 Output: Urine 700 / 700 1425 / 1425 Other: Date of Last Bowel Movement 12/27/17 12/27/17 12/27/17 # Bowel Movements 0 Results - Labs CBC & Chem 7: 12/30/17 04:29 01/02/18 07:54 Laboratory Results - last 24 hr 01/01/18 01/02/18 01/02/18 20:37 02:57 07:54 Sodium Cancelled Potassium Cancelled Chloride Cancelled Carbon Dioxide Cancelled Anion Gap Cancelled BUN Cancelled Creatinine Cancelled Estimated GFR Cancelled POC Glucose 342 H 320 H Random Glucose Cancelled Calcium Cancelled Magnesium 01/02/18 01/02/18 01/02/18 07:54 08:43 11:06 Sodium 143 Potassium 4.4 Chloride 102 Carbon Dioxide 37.3 H Anion Gap 4 L BUN 64 H Creatinine 1.68 H Estimated GFR 40 L POC Glucose 304 H 359 H Random Glucose 284 H Calcium 8.6 Magnesium 2.7 H 01/02/18 17:32 Sodium Potassium Chloride Carbon Dioxide Anion Gap BUN Creatinine Estimated GFR POC Glucose 398 H Random Glucose Calcium Magnesium - Imaging Impressions Chest X-Ray 01/02/18 00:00 CONCLUSION: Mild improvement in the bilateral pulmonary infiltrates compared to the prior examination. Assessment and Plan - Assessment (1) Acute exacerbation of CHF (congestive heart failure) Code(s): I50.9 - Heart failure, unspecified Status: Acute (2) Pneumonia Code(s): J18.9 - Pneumonia, unspecified organism Status: Acute - Plan Mr. Rader is a pleasant 77 year old male with a history of morbid obesity, CHF, HTN who presents to the ED due to worsening dyspnea that started about 3 weeks ago. Acute respiratory failure hypoxia -acute element likely resolved and now has chronic respiratory failure requiring 4 L via nasal cannula Acute exacerbation of CHF - mixed (systolic and diastolic) Chronic mixed congestive heart failure Pulm HTN - Cardiology evaluated patient, recommended to continue Lasix. -Switched from Lasix to Demadex per cardiology -Continue Vistaril as needed anxiety -CT chest is negative for any new acute findings -procal elevated, finish Levaquin course ELSA - BMP in AM, will increase demadex per cards Possible Afib - Patient takes Xarelto. Likely from Afib. Diabetes mellitus - sliding scale insulin. Levemir discontinued. Patient had low BG levels. - If needed, consider starting low dose Levemir 5 units QHS. Morbid obesity Bilateral lower ext lymphedema Severe stasis dermatitis - Appreciate wound care for recommendations. Full code. Xarelto. Discharge Planning: Consulting psychology and palliative care to further elucidate the patient's goals of care and goals of life. Otherwise his disposition is rehab. (1) Acute exacerbation of CHF (congestive heart failure) Qualifiers: Heart failure type: unspecified Qualified Code(s): I50.9 - Heart failure, unspecified (2) Pneumonia Qualifiers: Pneumonia type: due to unspecified organism Laterality: right Lung location : lower lobe of lung Qualified Code(s): J18.1 - Lobar pneumonia, unspecified organism
[2018-01-03] MEDS: Insulin NovoLOG Aspart Correctional Sugar Inj SQ SCH ×5 (03:23→21:37)
[2018-01-03] MEDS: Rivaroxaban 15 MG Tablet PO SCH (08:40)
[2018-01-03] MEDS: Torsemide 20 MG Tablet PO SCH ×2 (08:41→17:44)
[2018-01-03] MEDS: MethylPREDNISolone Sod Succinate Inj 40 MG/ML Vial IV.PUSH SCH (08:43)
[2018-01-03] MEDS: LORazepam 0.5 MG Tablet PO PRN ×2 (10:27→17:45)
--- NOTE | 2018-01-03 12:20 | P.PN ---
Subjective Interval history: He is on BIPAP again. Calls for it even though Sats are 97 on N/C 2 L Has no chest pain. Overall better. Physical Exam Vital signs: Vital Signs 01/02/18 13:00 01/02/18 14:00 01/02/18 15:00 Temperature Pulse Rate 90 92 H 89 Respiratory Rate Blood Pressure Pulse Oximetry 95 01/02/18 16:00 01/02/18 17:00 01/02/18 18:00 Temperature 97.6 F Pulse Rate 84 92 H 98 H Respiratory Rate 20 Blood Pressure 116/70 Pulse Oximetry 97 01/02/18 18:11 01/02/18 18:37 01/02/18 19:00 Temperature Pulse Rate Respiratory Rate Blood Pressure Pulse Oximetry 94 L 96 95 01/02/18 20:00 01/02/18 21:00 01/02/18 22:00 Temperature 97.7 F Pulse Rate 96 H 96 H 95 H Respiratory Rate 22 Blood Pressure 133/76 Pulse Oximetry 93 L 01/02/18 23:00 01/03/18 00:00 01/03/18 01:00 Temperature 97.9 F Pulse Rate 96 H 89 103 H Respiratory Rate 22 Blood Pressure 131/69 Pulse Oximetry 93 L 94 L 01/03/18 01:19 01/03/18 02:00 01/03/18 03:00 Temperature Pulse Rate 93 H 96 H Respiratory Rate Blood Pressure Pulse Oximetry 92 L 94 L 01/03/18 04:00 01/03/18 05:00 01/03/18 06:00 Temperature 97.8 F Pulse Rate 76 85 88 Respiratory Rate 22 Blood Pressure 130/67 Pulse Oximetry 96 01/03/18 07:00 01/03/18 08:00 01/03/18 11:00 Temperature 97.7 F Pulse Rate 91 H Respiratory Rate 16 Blood Pressure 126/68 Pulse Oximetry 97 94 L 94 L Intake & Output 01/02/18 01/03/18 01/03/18 18:59 06:59 18:59 Intake Total 640 / 640 420 / 420 Output Total 1050 / 1050 1200 / 1200 Balance -410 / -410 -780 / -780 Weight 150.6 kg Intake: Oral 640 / 640 420 / 420 Output: Urine 1050 / 1050 1200 / 1200 Other: Date of Last Bowel Movement 12/27/17 Narrative: GENERAL: Obese elderly W/M alert and not dyspneic. SKIN: Warm and dry. HEAD: Normocephalic. EYES: No scleral icterus. No injection or drainage. NECK: Supple, trachea midline. No JVD or lymphadenopathy. CARDIOVASCULAR: Irregular rate and rhythm without murmurs, gallops, or rubs. RESPIRATORY: Breath sounds equal bilaterally. Occ Basal crackles heard. No accessory muscle use. GASTROINTESTINAL: Abdomen soft, non-tender, nondistended. MUSCULOSKELETAL: No cyanosis, but has 1 + edema. BACK: Nontender without obvious deformity. No CVA tenderness. Neuro; No deficits. Results - Labs CBC & Chem 7: 12/30/17 04:29 01/02/18 07:54 Laboratory Results - last 24 hr 01/02/18 01/03/18 01/03/18 17:32 00:27 07:39 POC Glucose 398 H 333 H 325 H 01/03/18 11:11 POC Glucose 298 H - Imaging Impressions Chest X-Ray 01/02/18 00:00 CONCLUSION: Mild improvement in the bilateral pulmonary infiltrates compared to the prior examination. Assessment and Plan - Plan 1. Acute hypoxemic and hypercapnic respiratory insufficiency. 2. Diffuse bilateral pulmonary infiltrates. Ddx: pulmonary edema versus pneumonia. 3. Morbid obesity and obstructive sleep apnea. 4. Leukocytosis. 5. Acute kidney injury. 6. Anemia. 7. ? COPD. 8. Hypertension. 9. Diabetes mellitus. Plan Continue with BiPAP 15/5 CM FIO2 28 % at HS and wean to N/C days at 2 L. Bronchodilators( DuoNeb)QID D/C Solu-Medro. IS at bedside q4h Cont On Diuretics- Torsemide 20mg BID. Monitor renal function and BMP ,CBC in am GI and DVT prophylaxis. Cont on Xarelto 20 mg daily.
--- NOTE | 2018-01-03 14:51 | P.PNNPSY ---
- Behavior Intact: Coping/acceptance, Cooperative with treatment, Mild: Motivation - Cognitive Intact: Cognitive, Attention/concentration, Confused/orientation, Insight/ awareness, Judgment/problem solving, Memory - Psychosocial Intact: Psychosocial, Family/other adjustment, Realistic expectation - Progress Notes/Response to Treatment Contents of Sessions: Adjustment Time with Patient: 15 minutes Premorbid Psychological Status: Premorbid Cognitive, Emotional and Behavioral Status: Tenuous. The patient has high school years of education and a solid work history prior to this injury , now retired. The patient has no prior psychiatric difficulties, as described above. Substance abuse history is unremarkable. Behavioral Reactions of Patient and Family/Support System: Stable. The patient s family is experiencing ongoing issues of adjustment given the nature of the injury, and this aspect of recovery will require ongoing monitoring. Emotional/Behavioral Status of Patient and Family/Support System: Stable. Pertinent issues, if appropriate to this patients clinical care, are described in detail above. Maximizing Acute Care Outcome: It is recommended that the patient be monitored for emergent emotional difficulties as the medical condition evolves. At this point in the recovery process, the patient demonstrate adequate decision making capacity. In my opinion, he is able to understand a situation and its likely consequences, and he is able to manipulate information rationally. Cognitive capacity will be assessed throughout the recovery process. Anticipated Problems: Ongoing areas of concern will include depressive affect as it relates to his multiple medical challenges, which is expected to improve with time and treatment. To assist, I will follow the patient throughout his hospital stay to provide psychological support and encouragement in order to maximize his therapeutic outcome. Treatment Plan: This clinician will continue to follow with you throughout the course of this patients acute care treatment, and I will be available to meet with the patient s family/support system to facilitate their understanding and the ongoing care of their family member. The goals of neuropsychological intervention shall be both educational and supportive to the family/support system as is deemed clinically appropriate. Impression: This is a 77 year old male with multiple medical comorbidities recently admitted for exacerbation of CHF. Neurobehavioral status exam reveals an individual with good understanding of his medical issues, and appropriate concern regarding the physical challenges he has with his recovery. He voices a desire to transition to rehabilitation to increase his strength and endurance. Progress Note Narrative: Ongoing follow-up of patient, who was seen in his hospital room. The patient was somewhat lethargic, but conversant, eager to see this examiner. He appears in euthymic mood and stable affect. He reported that he is desiring to attend rehabilitation, and wants to go to a facility. He reported that his daughters are working to locate a facility. I provided support and encouragement. I will follow. - Diagnosis (1) Adjustment disorder with depressed mood Status: Acute
--- NOTE | 2018-01-03 17:02 | P.PN ---
Subjective Interval history: Nursing denies any deterioration since last night. Patient himself is actually on 2-3 L nasal cannula. Keeps asking for the BiPAP mask. Daughters at the bedside and said he is doing pretty good without the BiPAP mask on at this time. Physical Exam Vital signs: Vital Signs 01/02/18 18:00 01/02/18 18:11 01/02/18 18:37 Temperature Pulse Rate 98 H Respiratory Rate Blood Pressure Pulse Oximetry 94 L 96 01/02/18 19:00 01/02/18 20:00 01/02/18 21:00 Temperature 97.7 F Pulse Rate 96 H 96 H Respiratory Rate 22 Blood Pressure 133/76 Pulse Oximetry 95 93 L 01/02/18 22:00 01/02/18 23:00 01/03/18 00:00 Temperature 97.9 F Pulse Rate 95 H 96 H 89 Respiratory Rate 22 Blood Pressure 131/69 Pulse Oximetry 93 L 94 L 01/03/18 01:00 01/03/18 01:19 01/03/18 02:00 Temperature Pulse Rate 103 H 93 H Respiratory Rate Blood Pressure Pulse Oximetry 92 L 01/03/18 03:00 01/03/18 04:00 01/03/18 05:00 Temperature 97.8 F Pulse Rate 96 H 76 85 Respiratory Rate 22 Blood Pressure 130/67 Pulse Oximetry 94 L 96 01/03/18 06:00 01/03/18 07:00 01/03/18 08:00 Temperature 97.7 F Pulse Rate 88 81 86 Respiratory Rate 16 Blood Pressure 126/68 Pulse Oximetry 97 94 L 01/03/18 09:00 01/03/18 10:00 01/03/18 11:00 Temperature Pulse Rate 94 H 95 H 90 Respiratory Rate Blood Pressure Pulse Oximetry 94 L 01/03/18 12:00 Temperature 96.4 F L Pulse Rate Respiratory Rate 16 Blood Pressure 122/74 Pulse Oximetry Intake & Output 01/02/18 01/03/18 01/03/18 18:59 06:59 18:59 Intake Total 640 / 640 420 / 420 Output Total 1050 / 1050 1200 / 1200 Balance -410 / -410 -780 / -780 Weight 150.6 kg Intake: Oral 640 / 640 420 / 420 Output: Urine 1050 / 1050 1200 / 1200 Other: Date of Last Bowel Movement 12/27/17 Narrative: Muffled heart sounds Clear lungs bilaterally, minimally labored breathing which appears to be more due to anxiety, on nasal cannula Results - Labs CBC & Chem 7: 12/30/17 04:29 01/02/18 07:54 Laboratory Results - last 24 hr 01/02/18 01/03/18 01/03/18 17:32 00:27 07:39 POC Glucose 398 H 333 H 325 H 01/03/18 11:11 POC Glucose 298 H Assessment and Plan - Assessment (1) Acute exacerbation of CHF (congestive heart failure) Code(s): I50.9 - Heart failure, unspecified Status: Acute (2) Pneumonia Code(s): J18.9 - Pneumonia, unspecified organism Status: Acute - Plan Mr. Rader is a pleasant 77 year old male with a history of morbid obesity, CHF, HTN who presents to the ED due to worsening dyspnea that started about 3 weeks ago. chronic respiratory failure requiring 4 L via nasal cannula Acute element of HF resolved. Chronic mixed congestive heart failure Pulm HTN -Demadex per cardiology -Continue Vistaril as needed anxiety -CT chest is negative for any new acute findings -procal elevated, finish Levaquin course CKD - likely 2/2 HF Possible Afib - Patient takes Xarelto. Likely from Afib. Diabetes mellitus - sliding scale insulin. Levemir discontinued. Patient had low BG levels. - If needed, consider starting low dose Levemir 5 units QHS. Morbid obesity Bilateral lower ext lymphedema Severe stasis dermatitis - Appreciate wound care for recommendations. Full code. Xarelto. Discharge Planning: awaiting SNF placement with BIPAP capabilities. I had an extensive discussion with the daughters regarding his heart disease. I informed him that this was most likely a combination of intrinsic heart disease as well as being secondary to his lung disease and highly suspected undiagnosed and untreated obstructive sleep apnea. I informed him that that this point medical management would be the mainstay of treatment. I informed him that his heart disease likely has progressed gradually over time. They are satisfied with my answers. (1) Acute exacerbation of CHF (congestive heart failure) Qualifiers: Heart failure type: unspecified Qualified Code(s): I50.9 - Heart failure, unspecified (2) Pneumonia Qualifiers: Pneumonia type: due to unspecified organism Laterality: right Lung location : lower lobe of lung Qualified Code(s): J18.1 - Lobar pneumonia, unspecified organism
[2018-01-03 21:15] VITALS: RESP 18
[2018-01-04 00:21] VITALS: O2SAT 100
[2018-01-04] MEDS: Insulin NovoLOG Aspart Correctional Sugar Inj SQ SCH ×3 (04:48→14:36)
[2018-01-04 05:20] VITALS: TEMP 98.6
[2018-01-04 07:09] VITALS: BP 149/53
[2018-01-04 08:06] LABS: Bacteria,Urine Rare /hpf; Bilirubin,Urine Negative (Negative); Clarity,Urine Hazy (Clear); Color,Urine Yellow (Yellw/Straw); Glucose,Urine (UA) 50 mg/dL (Negative); Hyaline Casts,Urine 1 /lpf (0-3); Leukocyte Esterase,Urine Large (Negative); Mucus,Urine Few /lpf (Occasional); Nitrite,Urine Negative (Negative); Specific Gravity,Urine 1.015 (1.002-1.035); Squamous Epithelial Cell,Urine <1 /hpf (0-5)
[2018-01-04] MEDS ORDERED: predniSONE 20 MG Tablet PO SCH (09:00)
[2018-01-04] MEDS: LORazepam 0.5 MG Tablet PO PRN (09:32)
[2018-01-04] MEDS: Rivaroxaban 15 MG Tablet PO SCH (09:33)
[2018-01-04] MEDS: Torsemide 20 MG Tablet PO SCH (09:36)
[2018-01-04 10:13] LABS: Calcium 8.7 mg/dL (8.5-10.1); Carbon Dioxide 36.6 meq/L (21.0-32.0); Potassium 4.4 meq/L (3.5-5.1)
--- NOTE | 2018-01-04 10:17 | P.DS ---
Date of admission: 12/27/17 16:35 Primary care physician: Christopher Yoder III, MD Brief History from admission: Mr. Rader is a pleasant 77 year old male with a history of CHF, COPD, HTN, DM who presents to the ED on 12/27/2017 due to shortness of breath. His dyspnea started 2-3 weeks ago. However, today he was severely dyspneic which prompted him to seek medical attention. He denies any chest pain, cough, fever, chills. No changes in bowel or bladder habits. On arrival, patient was started on BiPAP which provided much relief of his symptoms. He was also given 60mg IV lasix. PMH: CHF, COPD, possible Afib, HTN PSH: No major surgeries in the past Social history: Denies using tobacco, alcohol or illicit drugs Family history: No family history of heart disease, cancer DS: Diagnosis - Discharge Diagnosis (1) Acute exacerbation of CHF (congestive heart failure) Status: Acute (2) Pneumonia Status: Acute DS: Medications - Discharge Medications Prescriptions: albuterol sulfate 1.25 mg INHALATION Q4-6H PRN #30 inhalation PRN Reason: Shortness Of Breath hydroxyzine pamoate 25 mg PO Q8H PRN #20 cap PRN Reason: Anxiety lorazepam 0.5 mg PO Q8H PRN #9 tab PRN Reason: breakthru anxiety prednisone See Label Instructions .ROUTE .COMPLEX #60 tab torsemide 20 mg PO BID@0900,1800 #60 tab DS: Summary Hospital Course: Patient was admitted for acute respiratory distress. Was placed on BiPAP underwent aggressive diuresis with the help of cardiology for acute since mixed systolic and diastolic heart failure. Pulmonology helped comanage the patient' s noninvasive pressure ventilation as well as treating him for pneumonia. Patient eventually was eventually weaned down to nasal cannula during the day and BiPAP at night. Per the daughter's request, psychology help to evaluate the patient as well as palliative care, concluded that the patient still wanted to work with rehab and try to improve his overall condition. Patient has met maximal benefit from hospitalization is clinically stable for discharge. - Time Spent with Patient Total time spent providing and/or coordinating discharge services: Less than 30 minutes Exam Vital signs: Vital Signs 01/03/18 11:00 01/03/18 12:00 01/03/18 13:00 Temperature 96.4 F L Pulse Rate 90 90 90 Respiratory Rate 16 Blood Pressure 122/74 Pulse Oximetry 94 L 01/03/18 14:00 01/03/18 15:00 01/03/18 16:00 Temperature 98.2 F Pulse Rate 94 H 97 H 92 H Respiratory Rate 16 Blood Pressure 122/78 Pulse Oximetry 98 98 01/03/18 17:00 01/03/18 18:00 01/03/18 18:41 Temperature Pulse Rate 98 H 86 Respiratory Rate Blood Pressure Pulse Oximetry 94 L 01/03/18 19:00 01/03/18 20:00 01/03/18 21:00 Temperature 97.5 F L Pulse Rate 105 H 80 Respiratory Rate 18 Blood Pressure 144/74 H Pulse Oximetry 99 100 01/03/18 21:51 01/03/18 23:00 01/04/18 00:00 Temperature 98.4 F Pulse Rate 90 84 Respiratory Rate 18 Blood Pressure 165/70 H Pulse Oximetry 98 98 100 01/04/18 00:39 01/04/18 03:00 01/04/18 04:00 Temperature 98.6 F Pulse Rate 83 Respiratory Rate 18 Blood Pressure 174/71 H Pulse Oximetry 100 95 100 01/04/18 04:29 01/04/18 05:00 01/04/18 06:00 Temperature Pulse Rate 78 80 Respiratory Rate Blood Pressure Pulse Oximetry 100 01/04/18 06:31 01/04/18 07:00 01/04/18 07:08 Temperature Pulse Rate 83 Respiratory Rate Blood Pressure 181/76 H 149/53 H Pulse Oximetry 100 Intake & Output 01/03/18 01/04/18 01/04/18 18:59 06:59 18:59 Weight 150.6 kg Other: Date of Last Bowel Movement 01/02/18 Narrative: On nasal cannula Obese male Awake and alert, no acute distress Results Procedures completed during hospitalization: . Labs on day of discharge: Labs from last 24 hours 01/04/18 01/04/18 01/04/18 09:40 08:11 07:10 Sodium 142 Potassium 4.4 Chloride 101 Carbon Dioxide 36.6 H Anion Gap 4 L BUN 59 H Creatinine 1.51 H Estimated GFR 45 L POC Glucose 243 H Random Glucose 230 H Calcium 8.7 Urine Color Yellow Urine Clarity Hazy H Urine pH 7.0 Ur Specific Jonancy 1.015 Urine Protein Negative Urine Glucose (UA) 50 Urine Ketones Negative Urine Occult Blood Small H Urine Nitrate Negative Urine Bilirubin Negative Urine Urobilinogen Less than 2 Ur Leukocyte Esterase Large H Urine RBC 9 H Urine WBC 59 H Ur Squamous Epith Cells <1 Urine Bacteria Rare H Hyaline Casts 1 Urine Mucus Few H Micro UA Comment Culture indicated Ur Microscopic Review Not Reportable Urine Culture Comments Culture indicated 01/04/18 01/03/18 01/03/18 04:43 21:36 16:59 Sodium Potassium Chloride Carbon Dioxide Anion Gap BUN Creatinine Estimated GFR POC Glucose 302 H 436 H 453 H* Random Glucose Calcium Urine Color Urine Clarity Urine pH Ur Specific Jonancy Urine Protein Urine Glucose (UA) Urine Ketones Urine Occult Blood Urine Nitrate Urine Bilirubin Urine Urobilinogen Ur Leukocyte Esterase Urine RBC Urine WBC Ur Squamous Epith Cells Urine Bacteria Hyaline Casts Urine Mucus Micro UA Comment Ur Microscopic Review Urine Culture Comments 01/03/18 11:11 Sodium Potassium Chloride Carbon Dioxide Anion Gap BUN Creatinine Estimated GFR POC Glucose 298 H Random Glucose Calcium Urine Color Urine Clarity Urine pH Ur Specific Jonancy Urine Protein Urine Glucose (UA) Urine Ketones Urine Occult Blood Urine Nitrate Urine Bilirubin Urine Urobilinogen Ur Leukocyte Esterase Urine RBC Urine WBC Ur Squamous Epith Cells Urine Bacteria Hyaline Casts Urine Mucus Micro UA Comment Ur Microscopic Review Urine Culture Comments - Impressions ITS Impressions Venous Doppler Study 12/29/17 10:40 CONCLUSION: 1. Limited by body habitus otherwise negative for deep venous thrombosis. Chest CT 12/31/17 00:00 . CONCLUSION: 1. Moderate bibasilar parenchymal changes and small bilateral pleural effusions are suspicious for congestive failure 2. Gallstones in a benign-appearing gallbladder. 3. Marked LAD calcifications. Chest X-Ray 01/02/18 00:00 CONCLUSION: Mild improvement in the bilateral pulmonary infiltrates compared to the prior examination. Discharge Plan - Discharge Disposition Patient Disposition: Discharge to SNF - Discharge Condition Condition: Serious - Discharge Order Discharge Orders: Discharge Order (Routine); Ordered 01/03/18 Ordered By: Sonido Rene - Physicians Team Primary Care Provider: Christopher Yoder III Attending Provider: Sonido Rene Other Providers: Tung Hare MD ; Reyna Mcdowell MD ; Aguilar Almaguer MD ; [facility] ; Binh Troy, PhD ; Adolfo Jefferson MD ; Braxton West MD
--- NOTE | 2018-01-04 12:00 | P.PN ---
Subjective Interval history: Doing better. On o2 2 l. Off BiPAP. Good output. Physical Exam Vital signs: Vital Signs 01/03/18 12:00 01/03/18 13:00 01/03/18 14:00 Temperature 96.4 F L Pulse Rate 90 90 94 H Respiratory Rate 16 Blood Pressure 122/74 Pulse Oximetry 01/03/18 15:00 01/03/18 16:00 01/03/18 17:00 Temperature 98.2 F Pulse Rate 97 H 92 H 98 H Respiratory Rate 16 Blood Pressure 122/78 Pulse Oximetry 98 98 01/03/18 18:00 01/03/18 18:41 01/03/18 19:00 Temperature Pulse Rate 86 Respiratory Rate Blood Pressure Pulse Oximetry 94 L 99 01/03/18 20:00 01/03/18 21:00 01/03/18 21:51 Temperature 97.5 F L Pulse Rate 105 H 80 Respiratory Rate 18 Blood Pressure 144/74 H Pulse Oximetry 100 98 01/03/18 23:00 01/04/18 00:00 01/04/18 00:39 Temperature 98.4 F Pulse Rate 90 84 Respiratory Rate 18 Blood Pressure 165/70 H Pulse Oximetry 98 100 100 01/04/18 03:00 01/04/18 04:00 01/04/18 04:29 Temperature 98.6 F Pulse Rate 83 Respiratory Rate 18 Blood Pressure 174/71 H Pulse Oximetry 95 100 100 01/04/18 05:00 01/04/18 06:00 01/04/18 06:31 Temperature Pulse Rate 78 80 83 Respiratory Rate Blood Pressure 181/76 H Pulse Oximetry 01/04/18 07:00 01/04/18 07:08 Temperature Pulse Rate Respiratory Rate Blood Pressure 149/53 H Pulse Oximetry 100 Intake & Output 01/03/18 01/04/18 01/04/18 18:59 06:59 18:59 Weight 150.6 kg Other: Date of Last Bowel Movement 01/02/18 Narrative: GENERAL: Obese W/M alert SKIN: Warm and dry. HEAD: Normocephalic. EYES: No scleral icterus. No injection or drainage. NECK: Supple, trachea midline. No JVD or lymphadenopathy. CARDIOVASCULAR: Regular rate and rhythm without murmurs, gallops, or rubs. RESPIRATORY: Breath sounds equal bilaterally.Occ Wheeze upper chest and No accessory muscle use. GASTROINTESTINAL: Abdomen soft, non-tender, nondistended. MUSCULOSKELETAL: No cyanosis,but 1+ edema. BACK: Nontender without obvious deformity. No CVA tenderness. Results - Labs CBC & Chem 7: 12/30/17 04:29 01/04/18 09:40 Laboratory Results - last 24 hr 01/03/18 01/03/18 01/04/18 16:59 21:36 04:43 Sodium Potassium Chloride Carbon Dioxide Anion Gap BUN Creatinine Estimated GFR POC Glucose 453 H* 436 H 302 H Random Glucose Calcium Urine Color Urine Clarity Urine pH Ur Specific [place] Urine Protein Urine Glucose (UA) Urine Ketones Urine Occult Blood Urine Nitrate Urine Bilirubin Urine Urobilinogen Ur Leukocyte Esterase Urine RBC Urine WBC Ur Squamous Epith Cells Urine Bacteria Hyaline Casts Urine Mucus Micro UA Comment Ur Microscopic Review Urine Culture Comments 01/04/18 01/04/18 01/04/18 07:10 08:11 09:40 Sodium 142 Potassium 4.4 Chloride 101 Carbon Dioxide 36.6 H Anion Gap 4 L BUN 59 H Creatinine 1.51 H Estimated GFR 45 L POC Glucose 243 H Random Glucose 230 H Calcium 8.7 Urine Color Yellow Urine Clarity Hazy H Urine pH 7.0 Ur Specific [place] 1.015 Urine Protein Negative Urine Glucose (UA) 50 Urine Ketones Negative Urine Occult Blood Small H Urine Nitrate Negative Urine Bilirubin Negative Urine Urobilinogen Less than 2 Ur Leukocyte Esterase Large H Urine RBC 9 H Urine WBC 59 H Ur Squamous Epith Cells <1 Urine Bacteria Rare H Hyaline Casts 1 Urine Mucus Few H Micro UA Comment Culture indicated Ur Microscopic Review Not Reportable Urine Culture Comments Culture indicated Assessment and Plan - Plan 1. Acute hypoxemic and hypercapnic respiratory insufficiency. 2. Diffuse bilateral pulmonary infiltrates. Ddx: pulmonary edema versus pneumonia. 3. Morbid obesity and obstructive sleep apnea. 4. Leukocytosis. 5. Acute kidney injury. 6. Anemia. 7. ? COPD. 8. Hypertension. 9. Diabetes mellitus. Plan Continue N/C at 2 L. Bronchodilators( DuoNeb)QID Transfer to rehab IS at bedside q4h Cont On Diuretics- Torsemide 20mg BID. Sleep test as OP. will see as OP in 2 weeks
[2018-01-04 21:11] VITALS: PULSE 70
== END 2018-01-04 15:01 ==
LOC: NEPC 11:53 → NEDA 16:35 → HCIS 18:18 → N05 01-01 17:35 → HCIS 01-01 17:36
PROVIDERS: ADMIT Hospitalist; ATTEND Hospitalist